=== PATIENT | female | born 1950 | race Caucasian/White ===

== ENCOUNTER → 2017-09-17 07:14 | Outpatient (CLI) | payer OTHER, SELFPAY ==
--- NOTE | 2017-09-17 07:40 | BI_ITS ---
MAMMOGRAPHY - BILATERAL SCREENING REASON FOR EXAM: Female, 67 years old. Routine annual screening examination. PERTINENT HISTORY: Aunt with breast cancer. TECHNIQUE: Digital bilateral breast lia (3D mammographic acquisition) in the CC and MLO projections. 2-D mediolateral oblique (MLO) and craniocaudad (CC) views of both breasts were obtained. CAD: Full Field Digital Mammography with Computer Added Detection was performed. COMPARISON: Comparison is made with prior study dated February 22, 2014 and March 14, 2013. FINDINGS: Breast Composition: There are scattered areas of fibroglandular density. There are no dominant masses or suspicious calcifications. No other significant abnormalities are identified. There has been no significant change since the prior study. BI/SCREENING MAMM (CAD), BILAT IMPRESSION: Stable bilateral screening mammogram. Yearly follow-up mammogram recommended. (A) ASSESSMENT CATEGORY: BIRADS Category 1: Negative. A letter regarding these results will be sent to the patient by the facility within 30 days. Approximately 10% of breast cancers are not detected by mammography. A normal mammogram should not delay biopsy of a clinically suspicious abnormality. [id number] Electronically Signed: Karan Patino MD at 12:45 EDT Tel [phone], Service support ,
== END ==
PROVIDERS: Family Provider Family Medicine; PCP Family Medicine; Visit Provider Family Medicine
DX: Z12.31 Encounter for screening mammogram for malignant neoplasm of breast (principal)
CPT/HCPCS: 77063; 77067

== ENCOUNTER → 2017-10-01 09:56 | Outpatient (CLI) | payer OTHER, SELFPAY ==
[2017-10-01 12:14] LABS: Hemoglobin A1c 6.4 % (4.2-6.3)
[2017-10-01 12:24] LABS: Anion Gap 5 (5-15); BUN 11 mg/dL (7-18); BUN/Creat Ratio 10.7 RATIO (10-20); Calcium,Total 8.9 mg/dL (8.5-10.1); Chloride 101 mmol/L (98-107); Cholesterol 192 mg/dL (200); Creatinine, Serum 1.03 mg/dL (0.55-1.02); EST Glomerular Filtration Rate 57 mL/min (>60); Est Glom Filt Rate - Afr Amer 69 mL/min (>60); Glucose 118 mg/dL (74-106); High Density Lipoprotein 40 mg/dL; Potassium 3.7 mmol/L (3.5-5.1); Sodium Level 138 mmol/L (136-145); Thyroid Stim Hormone (TSH) 2.49 uIU/mL (0.358-3.74); Triglycerides 157 mg/dL; Very Low Density Lipoprotein 31 mg/dL (5-40)
[2017-10-02 08:39] LABS: Vitamin D,25 Hydroxy 37.7 ng/mL (29.95-100.01)
== END ==
PROVIDERS: Family Provider Family Medicine; PCP Family Medicine; Visit Provider Family Medicine
DX: I10 Essential (primary) hypertension (principal); R73.09 Other abnormal glucose; E55.9 Vitamin D deficiency, unspecified; E78.00 Pure hypercholesterolemia, unspecified; E03.9 Hypothyroidism, unspecified
CPT/HCPCS: 36415; 80048; 80061; 82306; 83036; 84443

== ENCOUNTER → 2018-04-09 14:52 | Outpatient (CLI) | payer OTHER, SELFPAY ==
--- NOTE | 2018-04-09 14:55 | RAD_ITS ---
STUDY: X-RAY - RIGHT KNEE REASON FOR EXAM: Female, 67 years old. Bilateral knee pain TECHNIQUE: 3 weight bearing view(s) of the knee. COMPARISON: None. FINDINGS: Normal visualized distal femur. Normal visualized proximal tibia and fibula. Normal proximal tibiofibular articulation. There is moderate degenerative arthrosis of the medial femorotibial compartment with moderate joint space narrowing. Normal lateral femorotibial compartment. There is mild degenerative arthrosis of the patellofemoral articulation. There is a soft tissue prominence in the suprapatellar region suggesting a small volume joint effusion. The soft tissue structures are unremarkable. RAD/Knee 3 Views IMPRESSION: 1. Medial dominant osteoarthrosis. Trace joint effusion. Electronically Signed: Donavan Barrios MD at 8:32 EST , Service support ,
--- NOTE | 2018-04-09 14:55 | RAD_ITS ---
STUDY: X-RAY - LEFT KNEE REASON FOR EXAM: Female, 67 years old. Bilateral knee pain TECHNIQUE: 3 view(s) of the knee. COMPARISON: None. FINDINGS: Normal visualized distal femur. Normal visualized proximal tibia and fibula. Normal proximal tibiofibular articulation. There is mild to moderate degenerative arthrosis of the medial femorotibial compartment. Normal lateral femorotibial compartment. There is mild degenerative arthrosis of the patellofemoral articulation. There is no demonstrated joint effusion. The soft tissue structures are unremarkable. RAD/Knee 3 Views IMPRESSION: 1. Medial dominant osteoarthrosis. Electronically Signed: Donavan Barrios MD at 8:33 EST , Service support ,
== END ==
PROVIDERS: Family Provider Family Medicine; PCP Family Medicine; Referring Provider Family Medicine; Visit Provider Family Medicine
DX: M19.90 Unspecified osteoarthritis, unspecified site (principal)
CPT/HCPCS: 73562

== ENCOUNTER 2018-05-20 17:11 | Emergency (ER) | payer OTHER, SELFPAY ==
[2018-05-20 17:11] VITALS: BP 157/98; PULSE 92; RESP 16; TEMP 37.1; O2SAT 94; BMI 30.4
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
[2018-05-20 18:33] VITALS: BP 145/89; PULSE 88; RESP 14; O2SAT 97
== END 2018-05-20 18:33 | disposition home or self-care (01) ==
PROVIDERS: Emergency Provider Emergency Medicine; Family Provider Family Medicine; PCP Family Medicine
DX: S16.1XXA Strain of muscle, fascia and tendon at neck level, initial encounter (principal); T14.8XXA Other injury of unspecified body region, initial encounter; R07.9 Chest pain, unspecified; M25.511 Pain in right shoulder; M25.512 Pain in left shoulder; M25.561 Pain in right knee; M25.562 Pain in left knee; J02.9 Acute pharyngitis, unspecified; M54.9 Dorsalgia, unspecified; V89.2XXA Person injured in unspecified motor-vehicle accident, traffic, initial encounter; Y93.9 Activity, unspecified; Y92.9 Unspecified place or not applicable; E11.9 Type 2 diabetes mellitus without complications
CPT/HCPCS: 99284

== ENCOUNTER → 2018-09-22 | Outpatient (CLI) | payer OTHER, SELFPAY ==
[2018-09-22 14:24] LABS: Hemoglobin A1c 6.6 % (4.2-6.3)
[2018-09-22 14:26] LABS: Anion Gap 8 (5-15); BUN 14 mg/dL (7-18); BUN/Creat Ratio 14.1 RATIO (10-20); Calcium,Total 9.1 mg/dL (8.5-10.1); Chloride 102 mmol/L (98-107); Cholesterol 204 mg/dL (200); EST Glomerular Filtration Rate 59 mL/min (>60); Est Glom Filt Rate - Afr Amer 71 mL/min (>60); Glucose 114 mg/dL (74-106); High Density Lipoprotein 40 mg/dL; Potassium 3.8 mmol/L (3.5-5.1); Sodium Level 141 mmol/L (136-145); Triglycerides 155 mg/dL; Very Low Density Lipoprotein 31 mg/dL (5-40)
== END | disposition home or self-care (01) ==
LOC: MTLAB 12:14
PROVIDERS: Family Provider Family Medicine; PCP Family Medicine; Referring Provider Family Medicine; Visit Provider Family Medicine
DX: I10 Essential (primary) hypertension (principal); R73.03 Prediabetes; E78.00 Pure hypercholesterolemia, unspecified; E03.9 Hypothyroidism, unspecified; E55.9 Vitamin D deficiency, unspecified
CPT/HCPCS: 36415; 80048; 80061; 82306; 83036; 84443

== ENCOUNTER → 2018-12-22 14:11 | Outpatient (CLI) | payer OTHER, SELFPAY ==
--- NOTE | 2018-12-22 14:13 | BI_ITS ---
MAMMOGRAPHY - BILATERAL SCREENING REASON FOR EXAM: Female, 68 years old. Routine annual screening examination. PERTINENT HISTORY: Aunt with breast cancer. TECHNIQUE: Digital bilateral breast lj (3D mammographic acquisition) in the CC and MLO projections. 2-D mediolateral oblique (MLO) and craniocaudad (CC) views of both breasts were obtained. CAD: Full Field Digital Mammography with Computer Added Detection was performed. COMPARISON: Comparison is made with prior examination dated September 17, 2017 and February 22, 2014. FINDINGS: Breast Composition: There are scattered areas of fibroglandular density. There are no dominant masses or suspicious calcifications. Stable small benign-appearing right axillary lymph nodes. No other significant abnormalities are identified. There has been no significant change since the prior study. BI/SCREEN MAMM (CAD) W/LJ BILAT IMPRESSION: Stable bilateral screening mammogram. Yearly follow-up mammogram recommended. (A) ASSESSMENT CATEGORY: BIRADS Category 2: Benign. A letter regarding these results will be sent to the patient by the facility within 30 days. Approximately 10% of breast cancers are not detected by mammography. A normal mammogram should not delay biopsy of a clinically suspicious abnormality. [id number] Electronically Signed: Karan Patino, at 15:22 EDT , Service support ,
== END ==
PROVIDERS: Family Provider Family Medicine; PCP Family Medicine; Referring Provider Family Medicine; Visit Provider Family Medicine
DX: Z12.31 Encounter for screening mammogram for malignant neoplasm of breast (principal)
CPT/HCPCS: 77063; 77067

== ENCOUNTER → 2019-09-21 11:15 | Outpatient (CLI) | payer OTHER, SELFPAY ==
[2019-09-21 16:05] LABS: Hemoglobin A1c 6.3 % (3.8-5.6)
[2019-09-21 16:27] LABS: ALB/GLOB Ratio 1.2 RATIO (0.9-2.4); AST(SGOT) 26 U/L (15-37); Alanine Aminotransfer ALT/SGPT 46 U/L (13-56); Alkaline Phosphatase 58 U/L (45-117); Anion Gap 7 (5-15); BUN 13 mg/dL (7-18); BUN/Creat Ratio 12.7 RATIO (10-20); Calcium,Total 9.4 mg/dL (8.5-10.1); Chloride 99 mmol/L (98-107); Cholesterol 220 mg/dL (200); Creatinine, Serum 1.02 mg/dL (0.55-1.02); EST Glomerular Filtration Rate 57 mL/min (>60); Est Glom Filt Rate - Afr Amer 69 mL/min (>60); Globulin 3.4 g/dL (2.2-4.2); Glucose 104 mg/dL (74-106); High Density Lipoprotein 39 mg/dL; Potassium 3.6 mmol/L (3.5-5.1); Protein, Total 7.4 g/dL (6.4-8.2); Sodium Level 138 mmol/L (136-145); Thyroid Stim Hormone (TSH) 2.48 uIU/mL (0.358-3.74); Triglycerides 165 mg/dL; Very Low Density Lipoprotein 33 mg/dL (5-40)
== END ==
PROVIDERS: PCP Family Medicine; Referring Provider Family Medicine; Visit Provider Family Medicine
DX: E03.9 Hypothyroidism, unspecified (principal); I10 Essential (primary) hypertension; R73.03 Prediabetes
CPT/HCPCS: 36415; 80053; 80061; 83036; 84443

== ENCOUNTER 2019-10-28 10:59 | Outpatient (RCR) | payer OTHER, SELFPAY ==
--- NOTE | 2019-10-28 11:00 | SOAP_ITS ---
REASON FOR REFERRAL: The Patient is a 69-year-old female referred for a clinical assessment of the swallow function at [facility] on 10/28/2019 due to persisting pre-prandial coughing during intake. The Patient reports occasional coughing prior to deglutition with solids and mixed textures occurring < 1x per month over several years, with no significant variations in occurrence, though reports episodes do concern her due to the intensity of some of the episodes. She reports that this occurs typically in social situations, though can occur while by herself. She reports feeling at times like she is coughing on her saliva while chewing, and may be consuming larger volumes during these incidences, though is not quite positive about bolus volume associations, and is unable to identify any particular items she is struggling with. She reports mild xerostomia (dry mouth) that is self-managed through frequent liquid intake. She reports an occasional and mild post prandial sensation of a ?lump? in her throat (globus sensation) in addition to post intake substernal discomfort. She denies any unintentional weight loss, and denies any issues with appetite, early satiety (feeling full after few bites), or nausea and emesis. She denies issues with dysgeusia / hypogeusia / ageusia / hyposmia, denies issues with diurnal sialorrhea (drooling during the daytime), and denies odynophagia (pain during swallow). She denies any current or previous issues with aspiration related pulmonary complications, to include pneumonia, bronchitis, or unexplained asthma symptoms. The Patient is fully ambulatory with no difficulties with posture maintenance, appears well nourished. 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 PREVIOUS MODIFIED BARIUM SWALLOW STUDY: None ADDITIONAL OBJECTIVE ASSESSMENT RESULTS: 03/02/2017 esophagram revealed no mucosal erosions or esophageal strictures; tertiary contractions; small sliding type hiatal hernia. RESULTS OF THE EVALUATION: The Patient presents with no clear findings suggesting oropharyngeal dysphagia, though given reported symptomology would benefit from further objective assessment through videofluoroscopy. FUNCTIONAL STATUS ASSESSMENT RESULTS: FAY INDEX OF INDEPENDENCE IN ACTIVITIES OF DAILY LIVING: BATHIN DRESSIN TOILETIN TRANSFERRIN CONTINENCE: 1 FEEDIN FAY TOTAL SCORE: 6/6 COURTNEY-XU INSTRUMENTAL ACTIVITIES OF DAILY LIVING SCALE (IADL): ABILITY TO USE THE TELEPHONE: 1 SHOPPIN FOOD PREPARATION: 1 HOUSEKEEPIN LAUNDRY: 1 MODE OF TRANSPORTATION: 1 RESPONSIBILITY FOR OWN MEDICATION: 1 ABILITY TO HANDLE FINANCES: 1 COURTNEY-XU TOTAL SCORE: 8/8 FUNCTIONAL AMBULATION CATEGORY (FAC): FAC SCORE: 5 (ambulator- independent) FAC DESCRIPTION: subject can ambulate independently on nonlevel and level surfaces, stairs, and inclines. SUPPLEMENTARY DYSPHAGIA ASSESSMENT RESULTS (SCALES / PROM): REFLUX SYMPTOM INDEX (RSI) RSI TOTAL SCORE: 18 RSI INDICATIONS: a score of >13 may indicate significant reflux EATING ASSESSMENT TOOL ? 10 (EAT-10): EAT-10 TOTAL SCORE: 3 EAT-10 INTERPRETATION: a score of 3+ may represent swallowing problems ORAL MOTOR / MODIFIED CRANIAL NERVE ASSESSMENT: TRIGEMINAL NERVE (CNV): appears grossly intact FACIAL NERVE (CNVII): appears grossly intact GLOSSOPHARYNGEAL NERVE (CNIX): appears grossly intact VAGUS NERVE (CNX): appears grossly intact HYPOGLOSSAL NERVE (CNXII): appears grossly intact ORAL HEALTH ASSESSMENT TOOL (OHAT): LIPS: CATEGORY: 0 (healthy) DESCRIPTION: smooth, pink, moist TONGUE: CATEGORY: 0 (healthy) DESCRIPTION: normal, moist, roughness, pink GUMS AND TISSUES: CATEGORY: 0 (healthy) DESCRIPTION: pink, moist, smooth, no bleeding SALIVA: CATEGORY: 0 (healthy) DESCRIPTION: moist tissues, watery and free-flowing saliva NATURAL TEETH: PRESENT: yes CATEGORY: 0 (healthy) DESCRIPTION: no decayed or broken teeth/roots ORAL CLEANLINESS: CATEGORY: 0 (healthy) DESCRIPTION: clean with no food particles / tartar / buildup in mouth or dentures DENTAL PAIN: CATEGORY: 0 (healthy) DESCRIPTION: no behavioral, verbal, or physical signs of dental pain OHAT TOTAL SCORE: 0/16 SIALORRHEA SCORING SCALE (SSS): SSS SCORE: 1 (of 9) SSS DESCRIPTION: dry, never drools CLINICAL ASSESSMENT OF SWALLOW FUNCTION (QUANTITATIVE): REPETITIVE SALIVA SWALLOWING TEST (RSST): RSST RESULT: pass RSST DESCRIPTION: able to elicit 2 dry swallows within 30 seconds. 1OZ WATER SWALLOWING TEST (1OZ WST): 1OZ WST RESULTS: normal ? 1 (of 5) 1OZ WST DESCRIPTION: single swallow without coughing during ingestion 3OZ WATER SWALLOWING TEST (3OZ WST): 3OZ WST RESULTS: normal DRINKING EPISODES: none GALLARDO ASSESSMENT OF SWALLOWING ABILITY (MASA): MASA ASPIRATION SEVERITY SCORE: 198 MASA SEVERITY SCORE DESCRIPTION: unremarkable MASA DYSPHAGIA RISK RATING: possible; lowered probability of disorder, requiring ongoing review and monitoring CLINICAL ASSESSMENT OF SWALLOW FUNCTION (QUALITATIVE): ORAL PREPARATORY PHASE: competent bolus manipulation without fragmented swallowing (piecemeal deglutition); sufficient anterior oral containment during manipulation; preserved management of breathing / bolus formation without disrupted E ? S ? E pattern ORAL TRANSITIONAL PHASE: oral transitional phase appears unremarkable; no signs of transitional incompetence; no signs of bolus consolidation impairments; no signs or symptoms of premature posterior bolus loss PHARYNGEAL PHASE: appropriate hyolaryngeal excursion upon digital palpation; no obvious findings suggestive of pharyngeal phase delay / dyssynchrony; no subjective signs of pharyngeal dysmotility; no subjective signs of velopharyngeal impairments; intermittent post prandial throat clearing (~2-3 minutes post intake, continued for several minutes) ESOPHAGEAL PHASE: esophageal phase appears unremarkable, though noted higher RSI score reported (18) CLINICAL ASSESSMENT OF SWALLOW FUNCTION (SEVERITY GRADING): SWALLOWING PERFORMANCE SCALE (SPS): SPS SCORE: 2 (within functional limits) SPS SCORE DESCRIPTION: abnormal oral or pharyngeal stage; able to eat regular diet without modifications or swallowing precautions INTERVENTION CONSIDERATIONS AND RECOMMENDATIONS: The Patient would benefit from further assessment of the oropharyngeal swallow function under fluoroscopy due to the subjective nature of the current assessment regarding pharyngeal phase impairments and posterior bolus loss during the oral transitional phase of swallowing; given her reported symptoms she may be demonstrating intermittent bolus loss and / or mild pharyngeal phase dyssynchrony. . RECOMMENDATIONS FOR INTERVENTION: The Patient requires intensive skilled speech-language intervention targeting diet texture management and training / implementation of recommended compensatory strategies; with recommendations for further diagnostic assessment of the swallow function under fluoroscopy via Modified Barium Swallow (MBS) study; with goal adjustment pending MBS completion. POST ASSESSMENT EDUCATION: The results and recommendations were discussed with the Patient immediately following completion of the assessment, with the Patient verbalizing understanding and agreement with all recommendations and education provided. DIET TEXTURE RECOMMENDATIONS: Will recommend a regular textured (IDDSI: 7), thin liquid diet (IDDSI: 0) diet RECOMMENDED COMPENSATORY STRATEGIES: Reduced bolus volume / rate of ingestion, seated upright at 90 degrees during PO intake, remain upright for 30-60 minutes post meal (GERD precaution) FUNCTIONAL OUTCOMES: OUTCOME 1: the Patient will tolerate the least restrictive means of nutrition to facilitate adequate hydration / nutrition with optimum safety and efficiency of swallowing function during P.O. intake without overt signs and symptoms of aspiration. OUTCOME 2: the Patient will participate in a Modified Barium Swallow (MBS) study to objectively assess the Patient?s oropharyngeal swallowing function, to determine the least restrictive means of nutrition, and to identify appropriate intervention approaches / strategies to implement during treatment sessions at the supervised level. OUTCOME 3: goal adjustment as needed post MBS Micah Peterson M.A., CCC-EAP COUNSELOR, CBIS MBSImP Certified, LSVT Certified [facility] Speech-Language Pathology Department Email: [email or web address]
--- NOTE | 2020-03-16 12:54 | HP.SP.DC_ITS ---
ST Discharge Summary - Discharged: Discharge: The patient is a 69-year-old female who was referred for a clinical assessment of the swallow function at [facility] on 10/28/2019 due to persisting pre-prandial coughing during intake. The results of the assessment revealed no clear findings suggesting oropharyngeal dysphagia, though given reported symptomology would benefit from further objective assessment through videofluoroscopy. No videofluoroscopic assessment has yet to be completed, with no further intervention sessions scheduled. Given the rather significant laps between intervention sessions, it is appropriate to discharge from the skilled speech-language pathology caseload at this time, though I would gladly re-initiate intervention as needed moving forward.
== END 2019-10-28 19:00 | disposition home or self-care (01) ==
LOC: SP 10:59
PROVIDERS: PCP Family Medicine; Referring Provider Family Medicine; Visit Provider Family Medicine
DX: T17.908A Unspecified foreign body in respiratory tract, part unspecified causing other injury, initial encounter (principal)
CPT/HCPCS: 92610

== ENCOUNTER → 2020-02-21 15:55 | Outpatient (CLI) | payer OTHER, SELFPAY ==
--- NOTE | 2020-02-21 15:56 | BI_ITS ---
MAMMOGRAPHY - BILATERAL SCREENING REASON FOR EXAM: Female, 69 years old. Routine annual screening examination. PERTINENT HISTORY: Aunt with breast cancer. TECHNIQUE: Digital bilateral breast lj (3D mammographic acquisition) in the CC and MLO projections. 2-D mediolateral oblique (MLO) and craniocaudad (CC) views of both breasts were obtained. CAD: Full Field Digital Mammography with Computer Added Detection was performed. COMPARISON: Comparison is made with prior study dated 12/22/2018 and 09/17/2017. FINDINGS: Breast Composition: There are scattered areas of fibroglandular density. There are no dominant masses or suspicious calcifications. Stable small benign-appearing bilateral axillary lymph nodes. No other significant abnormalities are identified. There has been no significant change since the prior study. BI/SCREEN MAMM (CAD) W/LJ BILAT IMPRESSION: Stable bilateral screening mammogram. Yearly follow-up mammogram recommended. (A) ASSESSMENT CATEGORY: BIRADS Category 2: Benign. A letter regarding these results will be sent to the patient by the facility within 30 days. Approximately 10% of breast cancers are not detected by mammography. A normal mammogram should not delay biopsy of a clinically suspicious abnormality. [id number] Electronically Signed: Karan Patino, at 8:21 EST , Service support ,
== END ==
PROVIDERS: PCP Family Medicine; Referring Provider Family Medicine; Visit Provider Family Medicine
DX: Z12.31 Encounter for screening mammogram for malignant neoplasm of breast (principal); Z80.3 Family history of malignant neoplasm of breast
CPT/HCPCS: 77063; 77067

== ENCOUNTER → 2020-06-13 15:34 | Outpatient (CLI) | payer OTHER, SELFPAY ==
--- NOTE | 2020-06-13 15:45 | RAD_ITS ---
STUDY: X-RAY - RIGHT WRIST REASON FOR EXAM: Female, 69 years old. Wrist pain. TECHNIQUE: 3 view(s) of the wrist were obtained. COMPARISON: None. FINDINGS: Generalized osteopenia. Normal visualized distal radius and ulna. There is degenerative arthrosis of the radiocarpal articulation. Normal distal radioulnar articulation. Normal carpal bones. There is widening of the scapholunate articulation suggesting a sprain of the scapholunate interosseous ligament. Normal carpometacarpal articulation of the thumb. Normal second through fifth carpometacarpal articulations. Normal visualized metacarpal bones. The soft tissue structures are unremarkable. RAD/Wrist min 3 Views IMPRESSION: Osteopenia and degenerative changes of the wrist. There is no acute fracture or dislocation. Electronically Signed: Jimmy Torres DO at 21:23 EST Tel [phone], Service support ,
== END ==
PROVIDERS: PCP Family Medicine; Referring Provider Family Medicine; Visit Provider Family Medicine
DX: M25.531 Pain in right wrist (principal)
CPT/HCPCS: 73110

== ENCOUNTER 2020-08-09 07:30 | Outpatient (RCR) | payer OTHER, SELFPAY ==
--- NOTE | 2020-06-28 15:01 | HP.OTEVAL_ITS ---
Patient's Visit Information KIMBERLEE SUAREZ is a 69 year old F, referred to Occupational Therapy by Dr. Racheal Matthews MD, with a diagnosis of right wrist pain. Date of Evaluation: 06/28/20 Occupational Therapist: Pamela Hernandez, LEIDYR/Izzy, CHT - Subjective This 69 year old female was seen for OT eval with dx of right wrist pain. Pt s tates she has had wrist pian for 4 weeks or so- pt states right forearm is feeling tingling/buring and painful to touch. pt states this is limiting her with ADls and work tasks. 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 25 UD 35 - Strength Hardwood Floor Refinisher: right 30# left 50# Lateral Pinch: right 12# left 16# Tripod Pinch: right 12# left 14# - Sensation Sensation Comments: denies to finger tips - Special Tests WHAT Test: negative - Quick DASH-Disab of Arm,Shoulder& Hand Quick DASH Score: 36.3625 - Goals Goal:: pt will demo a increase in right lane attendant strength by 15# or greater to increase pts ind. with ADLs and IADLs by d/c Goal:: pt will demo right wrist ROM equal to Left by d/c to increase pts ind. with ADls and IADLs Goal:: pt will report pain no greater than 1/10 with use of right UE with ALDs and IADLs by d/c Goal:: pt will demo ind donning/doffing of custom orthosis by end of 1st session. pt will demo understanding of orthosis use and understanding precautions by end of 1st session. - Rehabilitation General Assessment: pts pain is limiting pts ind.with ADLs and work tasks at this time. pain is with ROM and reaching for items. Pt would benefit from OT services 1-2x week for 6 weeks. pt would bendfit from orthosis to provide support and healing to soft tissue structures at this time. Today therapist ed. pt on wrist ergonomics with reach/grasp and macros. custom thumb spica orthosis. therapist ed. pt on use of orthosis and precautions. pt agree to return to clinic for adj. therapist aslo ed. pt on use of heat/ice prn. and radial nerve glide- pt demo understanding and agree to POC. Rehabilitation Potential: Good - Anticipated Interventions Strengthening, Triggerpoint Release, Desensitization, Modalities, Orthoses, Joint Protection/Energy Conservation, Ergonomic Education - Visit Plan Frequency: 1-2x /Week Duration: 6 Weeks TEXT: Thank you for the opportunity to evaluate your patient. For Medicare and Medicare HMO plans, please review the plan of care and approve it. It will need to be FAXED BACK to us at [phone] for Medicare purposes. Please let me know if there are questions or concerns regarding this plan of care. Physician Signature: Date:
--- NOTE | 2020-08-09 08:03 | HP.OTDCSUM_ITS ---
It has been my pleasure to treat KIMBERLEE SUAREZ under orders from Dr. Racheal Matthews MD, for the diagnosis of right wrist pain for a total of 12 visit(s). Please see the following information for a summary of their discharge status. % Improvement: 40 Objective/Function: pt demo a right tongue and groove machine setter strength of 37# this is increase from 30#. right lateral pinch of 14# a increase from 12#. right tripod pinch at 13# a increase from 12#. pt demo functional ROM with some pain radial deviation. pt continues to demo with + fink testing Patient Goals: Decrease Pain, Use Hand/Wrist/Arm Normally Again Goal:: pt will demo a increase in right tongue and groove machine setter strength by 15# or greater to increase pts ind. with ADLs and IADLs by d/c Goal:: pt will demo right wrist ROM equal to Left by d/c to increase pts ind. with ADls and IADLs Goal:: pt will report pain no greater than 1/10 with use of right UE with ALDs and IADLs by d/c Goal:: pt will demo ind donning/doffing of custom orthosis by end of 1st session. pt will demo understanding of orthosis use and understanding precautions by end of 1st session. Plan: cont POC Discharge Comments: pt was seen for 13 OT visits. pt continues to have difficulty with right wrist pain- pt has not been wearing her brace the last two weeks- pt continues to report pain with active use, pt demo +fink. test- therapists has advised to return to for more aggressive tx. If there are questions or concerns regarding this patient's occupational therapy, please fell free to call me at [phone]. Thank you for the referral of this patient. Sincerely, Pamela Hernandez, OTR/L, CHT
== END 2020-08-09 19:00 | disposition home or self-care (01) ==
LOC: OT 07:30
PROVIDERS: PCP Family Medicine; Referring Provider Family Medicine; Visit Provider Family Medicine
DX: M25.531 Pain in right wrist (principal)
CPT/HCPCS: 97035; 97110; 97140; 97166; 97530; 97760

== ENCOUNTER → 2020-10-09 09:00 | Outpatient (CLI) | payer OTHER, SELFPAY ==
[2020-10-09 10:38] LABS: ALB/GLOB Ratio 1.2 RATIO (0.9-2.4); AST(SGOT) 21 U/L (15-37); Alanine Aminotransfer ALT/SGPT 35 U/L (13-56); Albumin, Serum 3.6 g/dL (3.2-5.0); Alkaline Phosphatase 61 U/L (45-117); Anion Gap 8 (5-15); BUN 15 mg/dL (7-18); BUN/Creat Ratio 15.4 RATIO (10-20); Calcium,Total 8.7 mg/dL (8.5-10.1); Chloride 102 mmol/L (98-107); Cholesterol 213 mg/dL (200); Creatinine, Serum 0.97 mg/dL (0.55-1.02); EST Glomerular Filtration Rate 60 mL/min (>60); Est Glom Filt Rate - Afr Amer 73 mL/min (>60); Glucose 132 mg/dL (74-106); High Density Lipoprotein 41 mg/dL; Potassium 3.8 mmol/L (3.5-5.1); Protein, Total 6.6 g/dL (6.4-8.2); Sodium Level 140 mmol/L (136-145); Thyroid Stim Hormone (TSH) 2.44 uIU/mL (0.358-3.74); Triglycerides 153 mg/dL; Very Low Density Lipoprotein 31 mg/dL (5-40)
[2020-10-09 10:54] LABS: Hemoglobin A1c 6.3 % (3.8-5.6)
== END ==
PROVIDERS: PCP Family Medicine; Referring Provider Family Medicine; Visit Provider Family Medicine
DX: E03.9 Hypothyroidism, unspecified (principal); E78.00 Pure hypercholesterolemia, unspecified; R73.03 Prediabetes; I10 Essential (primary) hypertension
CPT/HCPCS: 36415; 80053; 80061; 83036; 84443

== ENCOUNTER 2020-11-06 07:30 | Outpatient (RCR) | payer OTHER, SELFPAY ==
--- NOTE | 2020-11-06 09:21 | HP.OTDCSUM_ITS ---
It has been my pleasure to treat KIMBERLEE SUAREZ under orders from Dr. Enoch West MD, for the diagnosis of right radial styloid tenosynovitis (DeQuervain's) for a total of 4 visit(s). Please see the following information for a summary of their discharge status. 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 left salesperson burial needs strength 50#. right lateral pinch 10# a increase from 8#. right wrist ROM 60/60. right CMC 10*. MP 40*. IP 85. pt demo full ROM without pain of right wrist and thumb -. 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 Therapist has ed. pt on work station ergo and possible use of ergo mouse- pt demo understanding and agree to D/c with HEP Patient Goals: Regain Mobility, Regain Strength, Decrease Pain, Improve Fine Motor Skills, Use Hand/Wrist/Arm Normally Again Goal:: pt will demo a increase in right salesperson burial needs strength by 15# to increase pts ind. with ADLs and IADLs by dc. pt will demo a increase in tripod/lateral pinch by 2# or greater to ind. open baggies/containers by d/c Goal:: pt will report no pain great than 1/10 with use of right hand with ADls and IADLs by d/c Goal:: pt will demo understanding of wrist position to prevent grasping with wrist in flex and limiting RD/UD with computer use by d/c Goal:: pt will demo understanding of using orthosis at all times to allow for healing. pt will demo understanding of skin care and precautions to limit skin irritation Plan: D/C Discharge Comments: pt had cortisone shot about 6 weeks ago and has no pain in her right wrist- therapist ed. pt in work ergo and computer station ergo to avoid repetitive wrist RD/UD and pinch with wrist flex/ext.pt to cont. to wean out of orthosis but states she will cont. with use at work for a few weeks to ensure no irritations. pt demo understanding and agree to D/C with HEP. If there are questions or concerns regarding this patient's occupational therapy, please fell free to call me at [phone]. Thank you for the referral of this patient. Sincerely, Pamela Hernandez OTR/Izzy, CHT
--- NOTE | 2020-11-06 09:21 | HP.OTEVAL ---
Patient's Visit Information KIMBERLEE SUAREZ is a 70 year old F, referred to Occupational Therapy by Dr. Enoch West MD, with a diagnosis of right radial styloid tenosynovitis (DeQuervain's). Date of Evaluation: 10/02/20 Occupational Therapist: Pamela Hernandez, CHERYL/Izzy, CHT - Subjective This 70 year old female was seen for OT eval with dx of right radial styloid tenosynovitis ( DeQuervain's). pt has struggled with symptoms of pain for about 6 months. Pt did have cortisone shot about two weeks ago and started to wear her thumb Spica orthosis. pt states since she has had the cortisone shot she feels 50% better. Pt reports she is using her orthosis at all times. 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 with ADLs and IADLs by dc. pt will demo a increase in tripod/lateral pinch by 2# or greater to ind. open baggies/containers by d/c Goal:: pt will report no pain great than 1/10 with use of right hand with ADls and IADLs by d/c Goal:: pt will demo understanding of wrist position to prevent grasping with wrist in flex and limiting RD/UD with computer use by d/c Goal:: pt will demo understanding of using orthosis at all times to allow for healing. pt will demo understanding of skin care and precautions to limit skin irritation - Rehabilitation General Assessment: pt continuing to struggle with limited ROM and pain. this has limited pt would benefit from skilled OT services 1-2x week for 6 weeks to return pt to PLOF. Today therapist ed. pt on need of continue use of orthosis. wrist ergo. to prevent stress on tendon- pt given handout and demo understanding and agree to POC. Rehabilitation Potential: Good - Anticipated Interventions A/AAROM/PROM, Strengthening, Orthoses, Joint Protection/Energy Conservation, Ergonomic Education, Education re assistive Equipment, Education re Diagnosis, Home Program - Visit Plan Frequency: 1-2x /Week Duration: 6 Weeks TEXT: Thank you for the opportunity to evaluate your patient. For Medicare and Medicare HMO plans, please review the plan of care and approve it. It will need to be FAXED BACK to us at [phone] for Medicare purposes. Please let me know if there are questions or concerns regarding this plan of care. Physician Signature: Date:
== END 2020-11-06 11:38 | disposition home or self-care (01) ==
LOC: OT 07:30
PROVIDERS: PCP Family Medicine; Referring Provider Orthopaedic Surgery; Visit Provider Orthopaedic Surgery
DX: M65.4 Radial styloid tenosynovitis [de Quervain] (principal)
CPT/HCPCS: 97110; 97166; 97530

== ENCOUNTER → 2021-04-02 17:00 | Outpatient (CLI) | payer OTHER, SELFPAY ==
--- NOTE | 2021-04-02 16:41 | BI_ITS ---
MAMMOGRAPHY - BILATERAL SCREENING 3-D TOMOSYNTHESIS REASON FOR EXAM: Female, 70 years old. SCREENING PERTINENT HISTORY: No significant family history. TECHNIQUE: 2-D mammograms and 3-D Tomosynthesis of the breast (s) were performed. CAD was performed. COMPARISON: 02/21/2020 FINDINGS: The breast composition is composed of scattered fibroglandular density. Scattered benign calcifications are seen. No dense spiculated masses or suspicious microcalcifications are identified. No architectural distortion is identified. There is no skin thickening or retraction. There has been no significant change since the prior study. BI/SCRN MAMM (CAD)W/LJ BILAT IMPRESSION: No mammographic signs of malignancy. Routine yearly mammograms recommended. ASSESSMENT CATEGORY: BIRADS Category 1: Negative. A letter regarding these results will be sent to the patient by the facility within 30 days. FOLLOW UP RECOMMENDATION: Yearly follow up mammogram recommended. (A) Approximately 10% of breast cancers are not detected by mammography. A normal mammogram should not delay biopsy of a clinically suspicious abnormality. Electronically Signed: Adolfo Lockett MD at 17:36 EST Tel , Service support ,
== END ==
PROVIDERS: PCP Family Medicine; Visit Provider Family Medicine
DX: Z12.31 Encounter for screening mammogram for malignant neoplasm of breast (principal)
CPT/HCPCS: 77063; 77067

== ENCOUNTER → 2021-10-10 | Outpatient (CLI) | payer OTHER, SELFPAY ==
[2021-10-10 10:35] LABS: Vitamin B12 304 pg/mL (211-911); Vitamin D,25 Hydroxy 52.2 ng/mL
[2021-10-10 10:40] LABS: Hemoglobin A1c 6.5 % (3.8-5.6)
[2021-10-10 10:58] LABS: ALB/GLOB Ratio 1.1 RATIO (0.9-2.4); AST(SGOT) 22 U/L (15-37); Alanine Aminotransfer ALT/SGPT 32 U/L (13-56); Albumin, Serum 3.6 g/dL (3.2-5.0); Alkaline Phosphatase 55 U/L (45-117); Anion Gap 7 (5-15); BUN 14 mg/dL (7-18); BUN/Creat Ratio 13.6 RATIO (10-20); Calcium,Total 9.3 mg/dL (8.5-10.1); Chloride 101 mmol/L (98-107); Cholesterol 207 mg/dL (200); Creatinine, Serum 1.03 mg/dL (0.55-1.02); EST Glomerular Filtration Rate 56 mL/min (>60); Est Glom Filt Rate - Afr Amer 68 mL/min (>60); Globulin 3.3 g/dL (2.2-4.2); Glucose 141 mg/dL (74-106); High Density Lipoprotein 37 mg/dL; Potassium 3.3 mmol/L (3.5-5.1); Protein, Total 6.9 g/dL (6.4-8.2); Sodium Level 139 mmol/L (136-145); Thyroid Stim Hormone (TSH) 2.89 uIU/mL (0.358-3.74); Triglycerides 149 mg/dL; Very Low Density Lipoprotein 30 mg/dL (5-40)
[2021-10-10 11:17] LABS: Microalbumin,Random Urine 6.4 mg/L (NO RANGE EST.)
== END | disposition home or self-care (01) ==
LOC: MTLAB 08:57
PROVIDERS: PCP Family Medicine; Referring Provider Family Medicine; Visit Provider Family Medicine
DX: E03.9 Hypothyroidism, unspecified (principal); E55.9 Vitamin D deficiency, unspecified; E78.5 Hyperlipidemia, unspecified; I10 Essential (primary) hypertension; K21.9 Gastro-esophageal reflux disease without esophagitis; R73.03 Prediabetes
CPT/HCPCS: 36415; 80053; 80061; 82043; 82306; 82607; 83036; 84443

== ENCOUNTER → 2022-03-19 | Outpatient (CLI) | payer OTHER, SELFPAY ==
[2022-03-19 12:31] LABS: Vitamin B12 1605 pg/mL (211-911)
[2022-03-19 12:37] LABS: ALB/GLOB Ratio 1.2 RATIO (0.9-2.4); AST(SGOT) 21 U/L (15-37); Alanine Aminotransfer ALT/SGPT 33 U/L (13-56); Albumin, Serum 3.7 g/dL (3.2-5.0); Alkaline Phosphatase 60 U/L (45-117); Anion Gap 2 (5-15); BUN 13 mg/dL (7-18); Calcium,Total 9.3 mg/dL (8.5-10.1); Chloride 103 mmol/L (98-107); EST Glomerular Filtration Rate 58 mL/min (>60); Est Glom Filt Rate - Afr Amer 70 mL/min (>60); Globulin 3.2 g/dL (2.2-4.2); Glucose 130 mg/dL (74-106); Protein, Total 6.9 g/dL (6.4-8.2); Sodium Level 139 mmol/L (136-145)
[2022-03-19 13:47] LABS: Hemoglobin A1c 6.6 % (3.8-5.6)
== END | disposition home or self-care (01) ==
LOC: MTLAB 09:27
PROVIDERS: PCP Family Medicine; Referring Provider Family Medicine; Visit Provider Family Medicine
DX: I10 Essential (primary) hypertension (principal); R73.03 Prediabetes; E53.8 Deficiency of other specified B group vitamins
CPT/HCPCS: 36415; 80053; 82607; 83036

== ENCOUNTER → 2023-02-24 | Outpatient (CLI) | payer MEDICARE, SELFPAY ==
[2023-02-24 10:52] LABS: Microalbumin,Random Urine 9.8 mg/L (NO RANGE EST.); Vitamin B12 1870 pg/mL (211-911); Vitamin D,25 Hydroxy 60.3 ng/mL
[2023-02-24 11:07] LABS: ALB/GLOB Ratio 1.1 RATIO (0.9-2.4); AST(SGOT) 22 U/L (15-37); Alanine Aminotransfer ALT/SGPT 35 U/L (13-56); Albumin, Serum 3.8 g/dL (3.2-5.0); Alkaline Phosphatase 66 U/L (45-117); Anion Gap 6 (5-15); BUN 12 mg/dL (7-18); BUN/Creat Ratio 11.5 RATIO (10-20); Chloride 100 mmol/L (98-107); Cholesterol 195 mg/dL (200); Creatinine, Serum 1.04 mg/dL (0.55-1.02); EST Glomerular Filtration Rate 55 mL/min (>60); Est Glom Filt Rate - Afr Amer 67 mL/min (>60); Globulin 3.6 g/dL (2.2-4.2); Glucose 135 mg/dL (74-106); High Density Lipoprotein 39 mg/dL; Potassium 3.2 mmol/L (3.5-5.1); Protein, Total 7.4 g/dL (6.4-8.2); Sodium Level 138 mmol/L (136-145); T4 Free Direct 1.25 ng/dL (0.76-1.46); Thyroid Stim Hormone (TSH) 3.08 uIU/mL (0.358-3.74); Triglycerides 165 mg/dL; Very Low Density Lipoprotein 33 mg/dL (5-40)
== END | disposition home or self-care (01) ==
LOC: MTLAB 09:02
PROVIDERS: PCP Family Medicine; Referring Provider Family Medicine; Visit Provider Family Medicine
DX: E03.9 Hypothyroidism, unspecified (principal); E11.69 Type 2 diabetes mellitus with other specified complication; E55.9 Vitamin D deficiency, unspecified; E53.8 Deficiency of other specified B group vitamins; E78.5 Hyperlipidemia, unspecified
CPT/HCPCS: 36415; 80053; 80061; 82043; 82306; 82607; 84439; 84443

== ENCOUNTER → 2023-04-24 | Outpatient (CLI) | payer MEDICARE, SELFPAY ==
--- OUTSIDE RECORDS SUMMARY | 2023-04-24 14:39 | XMS RPT_ITS | CCD ---
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 Name Role Phone Smitha Miller PA-C Unavailable Brett GILES, Enoch Chan Unavailable Allergies Allergy Classification Reported Allergen(s) Allergy Type Date of Onset Reaction(s) Facility (2 sources) Codeine Drug Allergy 9 [facility] Work Phone: (2 sources) PERFUME; Translations: [PERFUME] allergy to substance 9 [facility] Work Phone: Medications Completed/Discontinued Medications Medication Drug Class(es) Dates Sig (Normalized) Sig (Original) [id number] 200 actuat albuterol 0.09 mg/actuat metered dose inhaler (2 sources) beta2-Adrener gic Agonist Start: 5 PROAIR HFA 108 (90 Base) MCG/ACT AERS 1 puff using inhaler as directed albuterol sulfate [id number] Carmenza Hernandez LPN biotin 5 mg oral capsule (2 sources) Start: 1 take 1 capsule by mouth once daily SM BIOTIN 5000 MCG CAPS 1 capsule by mouth once a day biotin [id number] Carmenza Hernandez LPN Calcium (2 sources) Phosphate Binder, Calcium Start: 5 take 1 tablet by mouth once daily CALCIUM 600 + D TABLET 1 tablet by mouth once a day CALCIUM 600 + D TABLET Carmenza Hernandez LPN Cholecalciferol (2 sources) Vitamin D Start: 9 take 1 capsule by mouth once daily SM VITAMIN D3 50 MCG (2000 UT) CAPS 1 capsule by mouth once a day cholecalciferol (vitamin d3) [id number] Carmenza Mary TRIVEDI citalopram 20 mg oral tablet (2 sources) Serotonin Reuptake Inhibitor Start: 3 take 1 tablet by mouth once daily CITALOPRAM HYDROBROMIDE 20 MG TABS 1 tablet by mouth once a day citalopram [id number] Carmenza Hernandez LPN hydroCHLOROthiazide 25 mg oral tablet (2 sources) Thiazide Diuretic Start: 3 take 1 tablet by mouth once daily HYDROCHLOROTHIAZIDE 25 MG TABS 1 tablet by mouth once a day hydrochlorothiazide [id number] Camrenza Mary TRIVEDI levothyroxine sodium 0.05 mg oral tablet (2 sources) l-Thyroxine Start: 5 take 1 tablet by mouth once daily LEVOTHYROXINE SODIUM 50 MCG TABS 1 tablet by mouth once a day levothyroxine 10907855855 Carmenza eHrnandez LPN omeprazole 40 mg delayed release oral capsule (2 sources) Proton Pump Inhibitor Start: 9 take 1 capsule by mouth once daily OMEPRAZOLE 40 MG CPDR 1 capsule by mouth once a day omeprazole 06818585892 Carmenza Hernandez LPN Problems Active Problems Problem Classification Problem Date Documented Da te Episodic/Chronic Neoplasms of unspecified nature or uncertain behavior (2 sources) 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; Translations: [Neoplasm of uncertain behavior of connective and other soft tissue] Onset: 04-30-2021 04-30-2021 Episodic Other nervous system disorders (2 sources) Carpal tunnel syndrome, right upper limb; Translations: [Carpal tunnel syndrome] Onset: 02-04-2019 02-04-2019 Chronic Past or Other Problems Problem Classification Problem Date Documented Date Episodic/Chronic Other connective tissue disease (2 sources) Radial styloid tenosynovitis [de Quervain]; Translations: [Radial styloid tenosynovitis] Onset: 09-18-2020 09-18-2020 Episodic Other connective tissue disease (2 sources) Trigger finger, right ring finger; Translations: [Trigger finger (acquired)] Onset: 02-04-2019 02-04-2019 Episodic Other connective tissue disease (2 sources) Other synovitis and tenosynovitis, right forearm; Translations: [Other tenosynovitis of hand and wrist] Onset: 02-04-2019 02-04-2019 Episodic Unclassified (2 sources) Problem Results Test Name Value Interpretation Reference Range Facil ity Vital Signs Date Time Vital Sign Value Performing Clinician Facility NEGATED: Highlighted [id number] 09:36-0400 Body height 172.72 cm Cammy Calle RN [facility] Work Phone: NEGATED: Highlighted [id number] 09:36-0400 Body height 173 cm Cammy Calle RN [facility] Work Phone: NEGATED: Highlighted [id number] 09:36-0400 Body mass index (BMI) [Ratio] 31.59 kg/m2 Cammy Calle RN [facility] Work Phone: NEGATED: Highlighted [id number] 09:36-0400 Body weight 93.9 kg Cammy Calle RN [facility] Work Phone: NEGATED: Highlighted [id number] 09:36-0400 Body weight 94 kg Cammy Calle RN [facility] Work Phone: NEGATED: Highlighted [id number] 09:35-0500 Body height 172.72 cm Jaye Ziats AT [facility] Work Phone: NEGATED: Highlighted [id number] 09:35-0500 Body height 173 cm Jaye Ziats AT [facility] Work Phone: NEGATED: Highlighted [id number] 09:35-0500 Body mass index (BMI) [Ratio] 31.59 kg/m2 Jaye Ziats AT [facility] Work Phone: NEGATED: Highlighted [id number] 09:35-0500 Body weight 93.9 kg Jaye Ziats AT [facility] Work Phone: NEGATED: Highlighted [id number] 09:35-0500 Body weight 94 kg Jaye Roberts AT [facility] Work Phone: Procedures Date Procedure Procedure Detail Performing Clinician Start: 07-23-2021 End: 07-23-2021 BP scrn no perf at interval Enoch West MD Work Phone: Start: 07-23-2021 End: 07-23-2021 Calc BMI abv up nuris f/u Enoch West MD Work Phone: Start: 07-23-2021 End: 07-23-2021 Current tobacco non-user cad cap copd pv dm Enoch West MD Work Phone: Start: 07-23-2021 End: 07-23-2021 Docrev cur meds by [facility] sharon West MD Work Phone: Start: 07-23-2021 End: 07-23-2021 No doc of pain Enoch West MD Work Phone: Start: 07-23-2021 End: 07-23-2021 Patient encounter procedure Enoch West MD Work Phone: Start: 06-04-2021 End: 06-04-2021 BP scrn no perf at interval Smitha B Miller PA-C Work Phone: Start: 06-04-2021 End: 06-04-2021 Calc BMI out nrm nuris nof/u Smitha B Miller PA-C Work Phone: Start: 06-04-2021 End: 06-04-2021 Current tobacco non-user cad cap copd pv dm Smitha B Miller PA-C Work Phone: Start: 06-04-2021 End: 06-04-2021 Docrev cur meds by too sharon Smitha B Miller PA-C Work Phone: Start: 06-04-2021 End: 06-04-2021 Pain neg no plan Smitha Ahumada Paul Rivera Work Phone: Start: 06-04-2021 End: 06-04-2021 Patient encounter procedure Smitha Ahumada Paul OLSON Work Phone: NEGATED: Highlighted rowStart: 07-23-2021 End: 07-23-2021 Documentation of current medications Cammy Calle RN NEGATED: Highlighted rowStart: 06-04-2021 End: 06-04-2021 Documentation of current medications Jaye Armando AT Plan of Treatment Date Care Activity Detail Author Start: 07-23-2021 End: 07-23-2021 Patient encounter procedure Appointment [facility] Work Phone: Start: 06-04-2021 End: 06-04-2021 Patient encounter procedure Appointment [facility] Work Phone: Social History Date Type Detail Facility Start: 06-04-2021 End: 07-23-2021 Assertion Unknown if ever smoked [facility] Work Phone: NEGATED: Highlighted rowStart: 06-04-2021 End: 06-04-2021 Employment detail Employment detail [facility] Work Phone: Evaluation note Note Date & Type Note Facility Evaluation note There may be informa tion available, but it has not been provided by the sender. [facility] Work Phone: Instructions Note Date & Type Note Facility [facility] Work Phone: Instructions Note Date & Type Note Facility [facility] Work Phone: Chief Complaint Chief Complaint Description Start Date right wrist post TENOSYNOVEC ABY RIGHT FIRST DORSAL COMPARTMENT; EXCISE RETINACULAR CYST RIGHT WRIST on 05/20/2021 Preliminary chief co mplaint data, not yet signed by the author as of Chief Complaint Description Start Date right hand post TENOSYNOVECT KAREEN RIGHT FIRST DORSAL COMPARTMENT; EXCISE RETINACULAR CYST RIGHT WRIST on 05/20/2021 Preliminary chief co mplaint data, not yet signed by the author as of Advance Directives There may be information available, but it has not been provided by the sender. There may be information available, but it has not been provided by the sender. Family History There may be information available, but it has not been provided by the sender.There may be information available, but it has not been provided by the sender. Additional Source Comments Reason for Visit (unrecogniz ed section and content) Reason For Visit Description Start Date Postop - subsequent visit Preliminary reason f or visit data, not yet signed by the author as of right hand post TENOSYNOVECT KAREEN RIGHT FIRST DORSAL COMPARTMENT; EXCISE RETINACULAR CYST RIGHT WRIST on 05/20/2021 FOR RECORDS PERTAINING TO PATIENTS WHO ARE OR HAVE BEEN ENROLLED IN A CHEMICAL DEPENDENCY/SUBSTANCEABUSE PROGRAM, SOME INFORMATION MAY BE OMITTED. This clinical summary was aggregated from multiple sources. Caution should be exercised in using it in the provision of clinical care. This summary normalizes information from multiple sources, and as a consequence, information in this document may materially change the coding, format and clinical context of patient data. In addition, data may be omitted in some cases. CLINICAL DECISIONS SHOULD BE BASED ON THE PRIMARY CLINICAL RECORDS. [employer] [facility]. provides no warranty or guarantee of the accuracy or completeness of information in this document.
[2023-04-24 17:46] LABS: Potassium 3.6 mmol/L (3.5-5.1)
== END | disposition home or self-care (01) ==
LOC: MFPLAB 14:28
PROVIDERS: PCP Family Medicine; Visit Provider Family Medicine
DX: E87.6 Hypokalemia (principal)
CPT/HCPCS: 36415; 84132

== ENCOUNTER → 2023-09-08 | Outpatient (CLI) | payer MEDICARE, SELFPAY ==
[2023-09-08 13:05] LABS: Thyroid Stim Hormone (TSH) 3.44 uIU/mL (0.358-3.74)
== END | disposition home or self-care (01) ==
LOC: MFPLAB 09:46
PROVIDERS: Visit Provider Family Medicine
DX: E03.9 Hypothyroidism, unspecified (principal)
CPT/HCPCS: 36415; 84443

== ENCOUNTER → 2023-09-19 | Outpatient (CLI) | payer MEDICARE, SELFPAY ==
[2023-09-19 10:12] LABS: Absolute Lymphocyte Count 1.85 X10^3/uL (0.83-4.51); Absolute Neutrophil Count 2.5 X10^3/uL (2.0-7.7); Basophil# 0.03 X10^3/uL; Basophil% 0.6 % (0-1); Hematocrit 44.2 % (37-47); Hemoglobin 14.8 g/dL (12.0-15.0); Lymphocyte # 1.85 X10^3/ul (0.83-4.51); Lymphocyte % 37.8 % (19-41); Mean Corp Hgb Conc 33.5 g/dL (32-36); Mean Corpuscular Hgb 27.9 pg (27.0-32.0); Mean Corpuscular Volume 83.4 fL (81-99); Mean Platelet Vol. 9.4 fl (6.2-12.0); Monocyte# 0.43 X10^3/uL; Monocyte% 8.8 % (0-10); NRBC Flagged by Analyzer 0 % (0-5); Neutrophil # 2.47 X10^3/uL (2.7-7.7); Neutrophil % 50.6 % (47-70); Platelet Count 275 K/mm3 (150-450); RBC Distribution Width CV 12.9 % (11.6-14.6); White Blood Count 4.9 K/mm3 (4.4-11.0)
[2023-09-19 10:31] LABS: ALB/GLOB Ratio 0.9 RATIO (0.9-2.4); AST(SGOT) 41 U/L (15-37); Alanine Aminotransfer ALT/SGPT 54 U/L (13-56); Albumin, Serum 3.7 g/dL (3.2-5.0); Alkaline Phosphatase 62 U/L (45-117); Anion Gap 6 (5-15); BUN 17 mg/dL (7-18); BUN/Creat Ratio 13.9 RATIO (10-20); Calcium,Total 9.4 mg/dL (8.5-10.1); Chloride 100 mmol/L (98-107); Creatinine, Serum 1.22 mg/dL (0.55-1.02); EST Glomerular Filtration Rate 46 mL/min (>60); Est Glom Filt Rate - Afr Amer 55 mL/min (>60); Globulin 3.9 g/dL (2.2-4.2); Glucose 161 mg/dL (74-106); Potassium 3.2 mmol/L (3.5-5.1); Protein, Total 7.6 g/dL (6.4-8.2); Sodium Level 136 mmol/L (136-145)
== END | disposition home or self-care (01) ==
LOC: RAD 09:34 → LAB 09:38
PROVIDERS: PCP Family Medicine; Referring Provider Family Medicine; Visit Provider Family Medicine
DX: R19.7 Diarrhea, unspecified (principal)
CPT/HCPCS: 36415; 80053; 85025

== ENCOUNTER → 2023-10-13 | Outpatient (CLI) | payer MEDICARE, SELFPAY ==
--- NOTE | 2023-10-13 09:00 | RAD_ITS ---
EXAMINATION: Air contrast UPPER GI SERIES INDICATION: Female, 73 years three-week history of pain and diarrhea. Gastroesophageal reflux. FLUOROSCOPY TIME (if supplied): (0:29) minutes/seconds. 36 images were obtained. TECHNIQUE: Radiographic and fluoroscopic images of the distal esophagus, stomach, and proximal small intestine were obtained following the oral ingestion of barium. COMPARISON: None. FINDINGS: There is no evidence for organomegaly, abnormal calcifications, or abnormal bowel gas pattern. The psoas margins and flank stripes are normal. The visualized osseous structures are normal. The mucosa of the esophagus, stomach and duodenum is normal in appearance without evidence for stricture, ulceration, mass or diverticulum. There is no evidence for hiatal hernia or gastroesophageal reflux. The stomach and duodenum are unremarkable. RAD/Upper GI Single Contrast IMPRESSION: 1. Normal upper gastrointestinal study. Electronically Signed: Karan Patino MD at 12:40 EDT ,
== END | disposition home or self-care (01) ==
PROVIDERS: PCP Family Medicine; Referring Provider Family Medicine; Visit Provider Family Medicine
DX: R19.7 Diarrhea, unspecified (principal)
CPT/HCPCS: 74240

== ENCOUNTER → 2023-10-29 | Outpatient (CLI) | payer MEDICARE, SELFPAY ==
[2023-10-29 18:29] LABS: Anion Gap 6 (5-15); BUN 14 mg/dL (7-18); BUN/Creat Ratio 12.7 RATIO (10-20); Calcium,Total 9.5 mg/dL (8.5-10.1); Chloride 101 mmol/L (98-107); EST Glomerular Filtration Rate 52 mL/min (>60); Est Glom Filt Rate - Afr Amer 62 mL/min (>60); Glucose 122 mg/dL (74-106); Potassium 3.5 mmol/L (3.5-5.1); Sodium Level 137 mmol/L (136-145)
== END | disposition home or self-care (01) ==
LOC: MTLAB 16:13
PROVIDERS: PCP Family Medicine; Referring Provider Family Medicine; Visit Provider Family Medicine
DX: E87.6 Hypokalemia (principal)
CPT/HCPCS: 36415; 80048

== ENCOUNTER → 2023-12-03 | Outpatient (CLI) | payer MEDICARE, SELFPAY ==
--- NOTE | 2023-12-03 12:21 | BI_ITS ---
MAMMOGRAPHY - BILATERAL SCREENING REASON FOR EXAM: Female, 73 years old. Routine annual screening examination. PERTINENT HISTORY: Aunt with breast cancer. TECHNIQUE: Digital bilateral breast lj (3D mammographic acquisition) in the CC and MLO projections. 2-D mediolateral oblique (MLO) and craniocaudad (CC) views of both breasts were obtained. CAD: Full Field Digital Mammography with Computer Added Detection was performed. COMPARISON: Comparison is made with prior study dated April 02, 2021. FINDINGS: Breast Composition: There are scattered areas of fibroglandular density. There are no dominant masses or suspicious calcifications. Stable 5.7 mm well-defined nodule in the axillary region of the left breast in keeping with a small lymph node. No other significant abnormalities are identified. There has been no significant change since the prior study. BI/SCRN MAMM (CAD)W/LJ BILAT IMPRESSION: Stable bilateral screening mammogram. Yearly follow-up mammogram recommended. (A) ASSESSMENT CATEGORY: BIRADS Category 2: Benign. A letter regarding these results will be sent to the patient by the facility within 30 days. Approximately 10% of breast cancers are not detected by mammography. A normal mammogram should not delay biopsy of a clinically suspicious abnormality. [id number] Electronically Signed: Karan Patino MD at 13:47 EDT ,
--- NOTE | 2023-12-03 12:25 | BD_ITS ---
STUDY: DUAL ENERGY X-RAY ABSORPTIOMETRY / DXA REASON FOR EXAM: Female, 73 years old. OSTEO TECHNIQUE: Bone Mineral Density (BMD) measurements of lumbar spine and bilateral hips were obtained. COMPARISON: Comparison is made with prior study February 22, 2014. FINDINGS: Lumbar Spine (L1-L4): g/cm2 (0.935) / T-score (-1.0) / Z-score (1.3) Findings are suggestive of osteopenia with a low fracture risk. Left Femur Total: g/cm2 (0.828) / T-score (-0.9) / Z-score (0.8) Left Femoral Neck: g/cm2 (0.653) / T-score (-1.8) / Z-score (0.3) Right Femur Total: g/cm2 (0.842) / T-score (-0.8) / Z-score (0.9) Right Femoral Neck: g/cm2 (0.664) / T-score (-1.7) / Z-score (0.4) The T-Scores on the most recent prior examination were: Lumbar Spine (L1-L4): There has been improvement of bone density since the previous examination. Left Femur Total: which represents a worsening of 7.1%. Right Femur Total: which represents a worsening of 4.2%. BD/Dexa Bone Density Study IMPRESSION: The patient is considered osteopenic as outlined below according to World Karl[employer] Organization (WHO) criteria with a moderate fracture risk. There has been worsening of bone density since the previous examination. Reference Information: The T-score is the number of standard deviations above or below the standard which is normal for young adults at their peak bone mineral density. The World Health Organization (WHO) interprets the T-scores as follows: Above -1 Normal bone density Between -1 and -2.5 Osteopenia Equal to / or below -2.5 Osteoporosis As a practical clinical guideline, osteopenia may be graded as follows: Mild -1 through -1.5 Moderate -1.6 through -2.0 Severe -2.1 through -2.4 The Z-score is the number of standard deviations above or below age-matched controls. A Z-score of less than -1.5 would be considered abnormal. References: 1. NIH Osteoporosis and Related Bone Diseases www osteo.org 2. International Society for Clinical Densitometry www iscd.org 3. National Osteoporosis Foundation www nof.org Electronically Signed: Karan Patino MD at 10:29 EDT ,
== END | disposition home or self-care (01) ==
LOC: OPBD 12:20
PROVIDERS: PCP Family Medicine; Referring Provider Family Medicine; Visit Provider Family Medicine
DX: Z12.31 Encounter for screening mammogram for malignant neoplasm of breast (principal); Z80.3 Family history of malignant neoplasm of breast; M81.0 Age-related osteoporosis without current pathological fracture
CPT/HCPCS: 77063; 77067; 77080

== ENCOUNTER → 2023-12-08 | Outpatient (CLI) | payer MEDICARE, SELFPAY ==
[2023-12-08 15:54] LABS: Hemoglobin A1c 6.2 % (3.8-5.6)
== END | disposition home or self-care (01) ==
LOC: MTLAB 12:45
PROVIDERS: PCP Family Medicine; Referring Provider Family Medicine; Visit Provider Family Medicine
DX: I10 Essential (primary) hypertension (principal); E11.69 Type 2 diabetes mellitus with other specified complication
CPT/HCPCS: 36415; 83036; 84443

== ENCOUNTER 2023-12-28 09:00 | Outpatient (RCR) | payer MEDICARE, SELFPAY ==
--- NOTE | 2023-12-14 08:54 | HP.PTEVAL_ITS ---
Patient's Visit Information Visit Information Visit Information: KIMBERLEE SUAREZ is a 73 year old F referred to Physical Therapy by ELYSSA YOO with a diagnosis of Unilateral primary OA R knee.. Date of Evaluation: 12/14/23 Physical Therapist: JUDE Medina Visit Plan Frequency: 2x /Week Duration: 3 Weeks Plan: 2-3 visits per pt request for HEP for R hip and knee strengthening exercises, functional transfers (sit to stand and stairs), gait training with HEP HEP: clams shells, SLR, Bridges, QS Next visit: squats to chair, step ups, Subjective Subjective: Pt is supposed to have R TKR Jan 31. They want her to get stronger before surgery. She is having trouble squatting, getting down to the floor and getting up, and stairs. She is bone on bone. She does hurt. She is wondering if she really needs this surgery. She can not walk as long as she needs too cause it hurts and stiffness. Stairs: depends on step 2 or recip and use a railing. She is sleeping ok and her knee aches sometimes but does not wake up a lot because of it. Pain R knee pain: Pain Intensity (Out of 10): 2 Objective Objective: Gait: Walks with decrease stance time on the R LE and decrease knee flexion Pt is able to heel and toe walk Stairs: 2 hand rails with recip gait pattern up the stair and down the stairs (stiffness and hesitation going down with the L on THE R knee) Sit to stand: able to get up without using her arms MMT: R hip flex 13.6 and L 11.6 R knee ext 14.4 and L 14.3 R knee flex 7 and L 8.7 R hip abd 6.1 and L 7.7 R hip ext 6.2 and L 7.8 Bridge: able to get 3/4 normal ROM Girth R tib tub 35 and L 34.4 R Sup patella 39.4 and L 38.6 Knee AROM: R -4 to 123 L -4 to 123 Balance/Special Test Scores Lower Extremity Functional Score: 45 Goals Goal 1:: I HEP Goal Time Frame: 4-6 Weeks Goal 2:: Be able to walk with more equal stance time on B LE's Goal Time Frame: 4-6 Weeks Goal 3:: Increase R knee AROM (-4 to123) Goal Time Frame: 4-6 Weeks Rehabilitation Potential Rehabilitation Potential: Good Anticipated Interventions Patient/Client Instruction: Educate patient on: Condition and Plan of Care For the Purpose of:: To decrease pain, To increase ROM, To improve nutrient delivery to tissue, To improve muscle performance and motor function, To improve ability to perform ADL's, To increase tolerance to activity/condition/position, To improve performance and independence with ADL's, To decrease level of supervision to perform tasks, To improve ability of physical actions for home/community/work/leisure, To improve gait and locomotor functions, To improve health of tissue, To decrease soft tissue restriction, To increase flexibility/ROM, To improve endurance, To improve balance and To improve safety with gait Therapeutic Exercise to Include: Strength training, Endurance training, Postural training, Flexibilty training, Gait and locomotor training, Passive ROM and Active ROM For the Purpose of:: To decrease pain, To decrease swelling/inflammation, To increase ROM, To improve nutrient delivery to tissue, To improve muscle performance and motor function, To improve ability to perform ADL's, To increase tolerance to activity/condition/position, To decrease level of supervision to perform tasks, To improve ability of physical actions for home/community/work/leisure, To improve gait and locomotor functions, To improve health of tissue, To decrease soft tissue restriction and To increase flex ibility/ROM Functional Training to Include: Gait training For the Purpose of:: To improve gait and locomotor functions and To improve safety with gait Text: Thank you for the opportunity to evaluate your patient. For Medicare and Medicare HMO plans, please review the plan of care and approve it. It will need to be FAXED BACK to us at [phone] for Medicare purposes. For Medicare only, by signing this I certify the plan of care. Please let me know if there are questions or concerns regarding this plan of care. Physician Signature: Date:
--- NOTE | 2023-12-28 09:50 | HP.PTDCSUM ---
Discharge Summary D/C summary: It has been my pleasure to treat KIMBERLEE SUAREZ referred by ELYSSA YOO, with the diagnosis of Unilateral primary OA R knee. for a total of 2 visit(s). Discharge Date: 12/28/23 Please see the following information for a summary of their discharge status. Subjective Subjective: Pt came in saying she does not want to have a TKR in Jan and wants to push it back. She wants to get HEP today and keep doing it at home until she is ready to have the surgery Pain R knee pain: Pain Intensity (Out of 10): 2 Overall Improvement % Improvement: 10 Objective Objective/Function: Pt has full understanding of above HEP with pictures. Goals Goal 1:: I HEP Goal Progress: Goal Met Goal 2:: Be able to walk with more equal stance time on B LE's Goal Progress: Progressing Goal 3:: Increase R knee AROM (-4 to123) Goal Progress: Progressing Plan Plan: 2-3 visits per pt request for HEP for R hip and knee strengthening exercises, functional transfers (sit to stand and stairs), gait training with HEP HEP: cla shells, SLR, Bridges, QS Next visit: squats to chair, step ups, D/C Information Discharge Comments: DC PT to HEP d/c sentence: If there are questions or concerns regarding this patient's physical therapy, please feel free to call me at [phone]. Thank you for the referral of this patient. Sincerely, Cyn Dhaliwal, MPT Balance/Gait/Functional tests Balance/Special Test Scores Lower Extremity Functional Score: 45 Improvement % Improvement: 10
== END 2023-12-28 10:48 | disposition home or self-care (01) ==
LOC: PT 09:00
PROVIDERS: PCP Family Medicine
DX: M17.11 Unilateral primary osteoarthritis, right knee (principal)
CPT/HCPCS: 97110; 97161

== ENCOUNTER → 2024-01-12 | Outpatient (CLI) | payer MEDICARE, SELFPAY ==
[2024-01-12 16:18] LABS: Erythrocyte Sedimentation Rate 4 mm/hr (0-30)
[2024-01-12 16:37] LABS: CRP < 2.90 mg/L (0.0-3.0); LDH 148 U/L (84-246)
[2024-01-14 11:10] LABS: Anti-Centromere B Ab <0.2 AI (0.0-0.9); Anti-Chromatin <0.2 AI (0.0-0.9); Anti-Jo <0.2 AI (0.0-0.9); Anti-Scleroderma-70 AB <0.2 AI (0.0-0.9); Anti-dsDNA Ab 8 IU/mL (0-9); RNP Ab 0.4 AI (0.0-0.9); SJOGREN'S Anti-SS-A test < 0.2 AI (0.0-0.9); SJOGREN'S Anti-SS-B test < 0.2 AI (0.0-0.9); Smith Ab <0.2 AI (0.0-0.9)
[2024-01-18 16:09] LABS: ACCA 31 units (0-90); ALCA 24 units (0-60); AMCA 55 units (0-100); Albumin 3.8 g/dL (2.9-4.4); Alpha-1-Globulins 0.2 g/dL (0.0-0.4); Alpha-2-Globulins 0.7 g/dL (0.4-1.0); Cytoplasmic Ab (C-ANCA) <1:20 titer (Neg:<1:20); Gamma Globulin 1.1 g/dL (0.4-1.8); Immunoglobulin A 102 mg/dL (64-422); Immunoglobulin E 5 IU/mL (6-495); Immunoglobulin G 1054 mg/dL (586-1602); Immunoglobulin M 110 mg/dL (26-217); PROEL- TOTAL PROTEIN 6.7 g/dL (6.0-8.5); Perinuclear Ab (P-ANCA) <1:20 titer (Neg:<1:20); gASCA 22 units (0-50)
== END | disposition home or self-care (01) ==
LOC: LAB 15:50
PROVIDERS: PCP Family Medicine
DX: K59.01 Slow transit constipation (principal)
CPT/HCPCS: 82784; 82785; 83516; 83615; 84165; 85652; 86036; 86037; 86140; 86225; 86235; 86334; 86671

== ENCOUNTER → 2024-02-03 | Outpatient (CLI) | payer MEDICARE, SELFPAY ==
[2024-02-10 08:13] LABS: Calprotectin, Stool 92 ug/g (0-120)
== END | disposition home or self-care (01) ==
LOC: LABSPEC 14:26
PROVIDERS: PCP Family Medicine
DX: K59.01 Slow transit constipation (principal); K58.9 Irritable bowel syndrome, unspecified
CPT/HCPCS: 83630; 83993

== ENCOUNTER → 2024-08-08 | Outpatient (CLI) | payer MEDICARE, SELFPAY ==
[2024-08-08 16:09] LABS: Absolute Lymphocyte Count 1.65 X10^3/uL (0.83-4.51); Absolute Neutrophil Count 4.9 X10^3/uL (2.0-7.7); Basophil# 0.03 X10^3/uL; Basophil% 0.4 % (0-1); Eosinophil# 0.14 X10^3/uL; Hematocrit 40.3 % (37-47); Hemoglobin 13.5 g/dL (12.0-15.0); Lymphocyte # 1.65 X10^3/ul (0.83-4.51); Lymphocyte % 23.2 % (19-41); Mean Corp Hgb Conc 33.5 g/dL (32-36); Mean Corpuscular Hgb 27.7 pg (27.0-32.0); Mean Corpuscular Volume 82.8 fL (81-99); Mean Platelet Vol. 9.3 fl (6.2-12.0); Monocyte# 0.43 X10^3/uL; NRBC Flagged by Analyzer 0 % (0-5); Neutrophil # 4.85 X10^3/uL (2.7-7.7); Neutrophil % 68.1 % (47-70); Platelet Count 291 K/mm3 (150-450); RBC Distribution Width CV 12.9 % (11.6-14.6); Red Blood Count 4.87 M/mm3 (4.2-5.4); White Blood Count 7.1 K/mm3 (4.4-11.0)
[2024-08-08 16:44] LABS: ALB/GLOB Ratio 1.5 RATIO (0.9-2.4); AST(SGOT) 20 U/L (<=31); Alanine Aminotransfer ALT/SGPT 18 U/L (<=34); Albumin, Serum 4.2 g/dL (3.4-4.8); Alkaline Phosphatase 62 U/L (35-104); Anion Gap 12 (5-15); BUN 17 mg/dL (4-19); BUN/Creat Ratio 16.2 RATIO (10-20); Calcium,Total 9.7 mg/dL (7.6-11.0); Carbon Dioxide 26.9 mmol/L (21.0-32.0); Chloride 100 mmol/L (98-108); Cholesterol 202 mg/dL (<=200); Creatinine, Serum 1.02 mg/dL (0.70-1.20); EST Glomerular Filtration Rate 58 (>60); Globulin 2.8 g/dL (2.2-4.2); Glucose 109 mg/dL (70-99); High Density Lipoprotein 41 mg/dL; Low Density Lipoprotein Calc. 137 mg/dL; Potassium 3.8 mmol/L (3.3-5.1); Sodium Level 139 mmol/L (133-145); Total Bilirubin 1.65 mg/dL (0.00-1.30); Triglycerides 121 mg/dL; Very Low Density Lipoprotein 24 mg/dL (5-40); cholesterol:hdl ratio screen 4.91
[2024-08-08 17:39] LABS: Vitamin B12 1150 pg/mL (180-914)
== END | disposition home or self-care (01) ==
LOC: MFPLAB 09:45
PROVIDERS: PCP Family Medicine; Referring Provider Family Medicine; Visit Provider Family Medicine
DX: Z01.89 Encounter for other specified special examinations (principal)
CPT/HCPCS: 36415; 80053; 80061; 82607; 83036; 85025

== ENCOUNTER 2024-11-24 08:56 | Day surgery (SDC) | payer MEDICARE, SELFPAY ==
[2024-11-24] VITALS (9 sets, daily range): BP systolic 85–118; BP diastolic 62–77; PULSE 59–74; RESP 16–18; TEMP 36.2–36.6; O2SAT 93–98; BMI 26.9
[2024-11-24] MEDS: Lactated Ringers 1,000 ML 15 ML IV (09:40)
--- NOTE | 2024-11-24 09:46 | PCM.PRE.AN2 ---
ASA Classification* ASA Classification ASA Classification: 3 Assessment & Plan Anesthesia* Anesthesia Assessment Anesthesia Assessment: Discussed sedation and/or anesthesia options, risks, benefits, and alternatives with patient/parents/legal guardian/POA. Questions invited. The patient/parents/legal guardian/POA seems to understand and agrees to proceed with anesthesia plan. Reviewed the physical assessment, medical history, allergy history and patient home medications list prior to surgery/procedure/anesthetic and documented any changes. Performed airway and anesthesia risk assessments. Anesthesia Type Anesthesia Type: MAC History Source History Obtained from:: Patient and Chart Anesthesia Focused Assessment* Temperature: 97.4 F Pulse Rate: 74 Blood Pressure: 118/77 Respiratory Rate: 18 Pulse Ox: 98 Oxygen Delivery Method: Room Air Airway Assessment Mouth opens: >3 cm Mallampati Score: II Teeth Condition: Intact and Caps/Crowns Neck Range of motion (ROM): Full ROM Labs Anesthesia Preop lab: CBC WBC 7.1 K/mm3 (4.4-11.0) 08/08/24 10:10 08/08/24 RBC 4.87 M/mm3 (4.2-5.4) 08/08/24 10:10 08/08/24 Hgb 13.5 g/dL (12.0-15.0) 08/08/24 10:10 08/08/24 Hct 40.3 % (37-47) 08/08/24 10:10 08/08/24 Plt Count 291 K/mm3 (150-450) 08/08/24 10:10 08/08/24 CHEMISTRY Potassium 3.8 mmol/L (3.3-5.1) 08/08/24 10:10 08/08/24 Sodium 139 mmol/L (133-145) 08/08/24 10:10 08/08/24 BUN 17 mg/dL (4-19) 08/08/24 10:10 08/08/24 Creatinine 1.02 mg/dL (0.70-1.20) 08/08/24 10:10 08/08/24 Glucose 109 mg/dL (70-99) H 08/08/24 10:10 08/08/24 TSH 2.020 uIU/mL (0.358-3.740) 12/08/23 12:47 09/03/24 COAG Pre-Assessment Diagnosis/Proposed Procedure Planned Operative Procedure(s): COLONOSCOPY Anesthesia History 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 When Was Last Pacemaker Check QUESTION #4 FULL TEXT: You/Your Family Experience fever (hyperthermia) with Anesthesia Last Oral Intake Last Oral intake: Last Oral Intake NPO since 04:00 11/24/24 09:27 Meds taken in AM with sips of No 11/24/24 09:27 water? Meds patient instructed to take am of surgery PONV PONV - seed corn production manager: PONV - seed corn production manager Female Yes 11/22/24 16:27 HX of Motion Sickness No 11/22/24 16:27 HX of N/V After Surgery Yes 11/22/24 16:27 Non-Smoker Yes 11/22/24 16:27 Duration of Surgery greater No 11/22/24 16:27 than 60 minutes Number of Risk Factors 3 11/22/24 16:27 PONV Score Moderate Risk 11/22/24 16:27 Height & Weight Height & Weight: Anesthesia: Height & Weight Height 5 ft 8 in 11/24/24 09:27 Weight: 80.286 kg 11/24/24 09:27 Body Mass Index (BMI) 26.9 11/24/24 09:27 Respiratory Assessment Respiratory Assessment - seed corn production manager: Respiratory Tract Infection Hx - seed corn production manager Hx Respiratory Tract Infection No 11/22/24 16:27 STOP Sleep Apnea STOP Sleep Apnea - seed corn production manager: STOP Sleep Apnea - seed corn production manager Hx Hypertension Yes: PER PT, CONTROLLED ON 11/22/24 16:27 MEDS Hx Sleep Apnea No 11/22/24 16:27 CPAP BIPAP Do you snore loudly (louder No 11/22/24 16:27 than talking or can be heard Do you often feel tired/ No 11/22/24 16:27 fatigued/ sleepy during daytime? Has anyone observed you stop Yes 11/22/24 16:27 breathing during sleep? STOP Results Positive 11/22/24 16:27 QUESTION #5 FULL TEXT : Do you snore loudly (louder than talking or can be heard through closed doors)? Tobacco Use History Tobacco Use History - seed corn production manager: Tobacco Use History - seed corn production manager Tobacco Use Smoking Status Never smoker 11/22/24 16:27 Hx Tobacco Use No 11/22/24 16:27 Years Smoking Packs Smoked per Day Smoking Cessation Date was within the last 15 years Hx Smoking Cessation Date Hx Smoking Cessation Counseling Hematologic Medial History Hematologic Hx - seed corn production manager: Hematologic Medical Hx - documentation specialist Hx of Blood Transfusion No 11/22/24 16:27 Hx of Transfusion in last 3 No 11/22/24 16:27 Months Date of Last Transfusion (if within last 3 months) Ever experience any problems No 11/22/24 16:27 with transfusion(s)? Specify any problems Hx of Preganancy in last 3 No 11/22/24 16:27 Months Nurse Filling Out Transfusion MARTIN 11/22/24 16:27 & Questions: Date: 11/22/24 11/22/24 16:27 Time: 16:29 11/22/24 16:27 Patient unable to answer at this time (ie. confused, unrespo /Reproduction History /Reproductive History - seed corn production manager: /Reproductive Hx- seed corn production manager Hx Now No 11/22/24 16:27 Gestational Age (in weeks): EDC: Hx Hx Para Hx Section SAB No 11/22/24 16:27 Active Medications Active Medications: Current Medications Generic Name Dose Route Start Last Admin Trade Name Freq PRN Reason Stop Dose Admin Lactated Ringer's 1,000 mls @ 15 mls/hr 11/24/24 09:15 11/24/24 09:40 IV 15 mls/hr .Q48H CELSA Administration PFSH Medical History (Updated 11/22/24 @ 16:35 by Esthela Paige) Wears glasses Thyroid disease Arthritis PONV (postoperative nausea and vomiting) History of hiatal hernia History of IBS Gastric reflux Asthma Non-smoker Leg cramps Hypertension Home Medications ?Medication ?Instructions ?Recorded ?Last Taken ?Type biotin 5,000 mcg chewable tablet 5,000 mcg PO DAILY 10/12/23 11/20/24 History calcium carbonate (Antacid 200 mg PO BID 10/12/23 11/20/24 History (calcium carbonate)) cholecalciferol (vitamin D3) 50 50 mcg PO DAILY 10/12/23 11/20/24 History mcg (2,000 unit) capsule citalopram 20 mg tablet 20 mg PO DAILY 10/12/23 11/20/24 History cyanocobalamin (vitamin B-12) 2,000 mcg PO DAILY 10/12/23 11/20/24 History 1,000 mcg capsule hydrochlorothiazide 25 mg tablet 25 mg PO DAILY 10/12/23 11/20/24 History levothyroxine 50 mcg capsule 50 mcg PO DAILY 10/12/23 11/24/24 07:00 History omeprazole 40 mg capsule,delayed 40 mg PO DAILY 10/12/23 11/20/24 History release semaglutide 0.25 mg or 0.5 mg (2 0.5 mg subcut TH 01/12/24 11/10/24 History mg/3 mL) subcutaneous pen injector (Ozempic) psyllium husk 2.6 gram/4.1 gram 1 tbsp PO ONCE 04/13/24 Unknown History oral powder ondansetron HCl 4 mg tablet 4 mg PO .COMPLEX #10 tabs 07/26/24 Unknown Rx peg 3350-electrolytes 236 240 ml PO Q10M #4,000 mL 07/26/24 Unknown Rx gram-22.74 gram-6.74 gram-5.86 gram solution (Golytely) linaclotide 290 mcg capsule 290 mcg PO QAM #90 caps 09/19/24 11/20/24 Rx (Linzess) peg 3350-sod sulf,[id number]-dlw-pbo See Rx Instructions PO .COMPLEX #2 11/18/24 11/24/24 Rx 178.7-7.3-0.5-1.12-0.9 gram oral mL soln (Suflave) albuterol sulfate 90 mcg/actuation 2 puff inhalation 4X/DAY 11/22/24 Unknown History aerosol inhaler Allergy/AdvReac Type Severity Reaction Status Date / Time Sulfa (Sulfonamide Allergy Unknown Verified 11/24/24 09:22 Antibiotics) Surgical History (Updated 11/22/24 @ 16:27 by Esthela Paige) History of cholecystectomy History of esophagogastroduodenoscopy (EGD) History of tubal ligation History of colonoscopy H/O: hysterectomy Social History household members: spouse housing: house number of children: 3 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
--- NOTE | 2024-11-24 09:49 | PCM.HP.STD ---
HPI - General General Date of Admission: 11/24/24 Date of Service: 11/24/24 Chief Complaint: Constipation HPI Narrative KIMBERLEE SUAREZ, is a 74 F who presents with the Chief Complaint: constipation - per prior notes colon and EGD in 2019 - per patient this was negative - denies any bleeding - on metamucil - some improvement - wants a pill - difficult to get down - started Ozempic November 2023 - she reports for years she was experiencing diarrhea for a few days and then constipation - since starting metamucil she thinks this has helped - maybe 30% better - 1tbsp daily - she has increased her water intake - she reports PCP gave her Linzess - states she took 1 dose and it took 8 hours to work - miralax on occasion - stools softener on occasion - lower abd pain prior to a BM - does not feels she is fully evacuating - denies any family h/o colon CA - states she feels stool is stuck in the rectum but cannot push hard enough to get it out the muscles just are not strong enough - she does experience urinary incontinence - reports a h/o rectocele [facility] Medical History Wears glasses Thyroid disease Arthritis PONV (postoperative nausea and vomiting) History of hiatal hernia History of IBS Gastric reflux Asthma Non-smoker Leg cramps Hypertension Home Medications ?Medication ?Instructions ?Recorded ?Last Taken ?Type biotin 5,000 mcg chewable tablet 5,000 mcg PO DAILY 10/12/23 11/20/24 History calcium carbonate (Antacid 200 mg PO BID 10/12/23 11/20/24 History (calcium carbonate)) cholecalciferol (vitamin D3) 50 50 mcg PO DAILY 10/12/23 11/20/24 History mcg (2,000 unit) capsule citalopram 20 mg tablet 20 mg PO DAILY 10/12/23 11/20/24 History cyanocobalamin (vitamin B-12) 2,000 mcg PO DAILY 10/12/23 11/20/24 History 1,000 mcg capsule hydrochlorothiazide 25 mg tablet 25 mg PO DAILY 10/12/23 11/20/24 History levothyroxine 50 mcg capsule 50 mcg PO DAILY 10/12/23 11/24/24 07:00 History omeprazole 40 mg capsule,delayed 40 mg PO DAILY 10/12/23 11/20/24 History release semaglutide 0.25 mg or 0.5 mg (2 0.5 mg subcut TH 01/12/24 11/10/24 History mg/3 mL) subcutaneous pen injector (Ozempic) psyllium husk 2.6 gram/4.1 gram 1 tbsp PO ONCE 04/13/24 Unknown History oral powder ondansetron HCl 4 mg tablet 4 mg PO .COMPLEX #10 tabs 07/26/24 Unknown Rx peg 3350-electrolytes 236 240 ml PO Q10M #4,000 mL 07/26/24 Unknown Rx gram-22.74 gram-6.74 gram-5.86 gram solution (Golytely) linaclotide 290 mcg capsule 290 mcg PO QAM #90 caps 09/19/24 11/20/24 Rx (Linzess) peg 3350-sod sulf,[id number]-lzy-ggk See Rx Instructions PO .COMPLEX #2 11/18/24 11/24/24 Rx 178.7-7.3-0.5-1.12-0.9 gram oral mL soln (Suflave) albuterol sulfate 90 mcg/actuation 2 puff inhalation 4X/DAY 11/22/24 Unknown History aerosol inhaler Allergy/AdvReac Type Severity Reaction Status Date / Time Sulfa (Sulfonamide Allergy Unknown Verified 11/24/24 09:22 Antibiotics) Surgical History History of cholecystectomy History of esophagogastroduodenoscopy (EGD) History of tubal ligation History of colonoscopy H/O: hysterectomy Social History household members: spouse housing: house number of children: 3 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 status: 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 pets and animals: No Smoking Status: Never smoker alcohol intake: current alcohol intake frequency: holidays/special occasions only substance use type: does not use caffeine: Yes Type: carbonated beverages and tea harjinder/worship: Hindu seatbelt use: always do you feel safe at home: Yes ROS Constitutional Constitutional: Denies fatigue, fever(s), poor appetite, weight gain or weight loss Gastrointestinal Gastrointestinal: Denies belching, bloating, change in bowel habits, change in stool character, chewing difficulty, coffee ground emesis, constipation, cramping, diarrhea, dyspepsia, dysphagia, early satiety, excessive flatus, fecal incontinence, heartburn, hematemesis, hematochezia, hemorrhoids, loose stools, melena, nausea, odynophagia, rectal bleeding, tenesmus, vomiting or weight changes Vital Signs Vital Signs Vital Signs: 11/24/24 09:25 11/24/24 09:27 11/24/24 09:46 Temperature 97.4 F L 97.4 F L Temperature Source Temporal Pulse Rate 74 74 Respiratory Rate 18 18 Respiratory Pattern Normal Blood Pressure 118/77 118/77 Blood Pressure Mean 90 Blood Pressure Source Monitor Blood Pressure Position Semi-Fowlers Blood Pressure Location Left Arm Pulse Ox 98 98 Oxygen Delivery Method Room Air Room Air Weight Weight: 177 lb Body Mass Index (BMI) 26.9 Physical Exam Const alert, oriented x3, no apparent distress and healthy appearing General Appearance: cooperative GI normal to inspection, nondistended, normoactive bowel sounds, soft to palpation, non-tender and non-distended Percussion: normal to percussion Rectal Exam: deferred Assessment & Plan Assessment/Plan (1) Constipation by delayed colonic transit: (2) Fecal retention: PLAN: Assessment and Plan Assessment and Plan (1) Constipation by delayed colonic transit: Status: Acute (2) Fecal retention: Status: Acute Plan: ARM Orders: Referrals Gastroenterology K59.00 - Constipation, unspecified, K59.01 - Slow transit constipation Medications: New linaclotide (Linzess) take 30 minutes prior to breakfast daily 145 mcg PO QAM 90 caps 1RF Plan 73y/o female presents for three month follow-up of constipation. She was last seen by Maranda Wharton CNP on 01/12/2024. She was started on metamucil daily but reports this is difficult to get down and would like a pill. Labs completed 01/12/2024 reveal a normal CRP, fecal calprotectin and IBD serologies. She reports constipation worsened with starting Semiglutide November 2023; she reports a 15lbs weight in past 5 months. She denies any bleeding. She does experience some lower abdominal pain with bowel movements and c/o incomplete evacuation with a BM every other day. I have scheduled her for an ARM and started Linzess 145mcg daily. She will also discontinue Metamucil and start Fibercon tablets daily. She will follow-up in one month. Patient Instructions: 1. Discontinue Metamucil 2. Fibercon tablets - take 2 tablets once a day with 8 ounces of water 3. Start Linzess 145mcg once daily - take 30 minutes before breakfast daily 4. Anorectal Manometry 5. Follow-up in 1 month, pending symptoms may recommend colonoscopy Plan Details Follow Up: 1 Month
--- NOTE | 2024-11-24 10:00 | COLBX_PTH ---
PATIENT: KIMBERLEE SUAREZ LOC: EN U#:[id number] AGE/SX: 74/F ROOM: RE11/24/[address]: Dr. Marvin Meraz DO : 1950 BED: DIS: 11/24/2024 SPEC #: [id number] RECD: 11/24/24 11:35 STATUS: KULDIP CRESENCIO #: [id number] TAE: 11/24/24 10:[address]: Marvin Meraz DEPT: SURGICAL PATHOLOGY RECD BY: Kristofer Obrien ENTERED: 11/24/24 14:48 SP TYPE: COLON BX OTHR DR: Emigdio Michelle MD Tissues: A - Transverse colon B - Rectum, NOS Procedures: Surgery Specimen Level IV HEADER OPERATION: Colonoscopy with biopsy PRE-OP DIAGNOSIS: Constipation by delayed colonic transit, fecal retention TISSUE SUBMITTED: A- Transverse colon polyps biopsy, B- Rectum colon polyp biopsy MICROSCOPIC DIAGNOSIS A. Transverse colon, polyp, biopsy: * Tubular adenoma B. Rectum, polyp, biopsy: * Tubular adenoma MICROSCOPIC DESCRIPTION Slides are reviewed. GROSS DESCRIPTION A. Received in fixative is one container labeled with the patient's name and designated Transverse colon polyp biopsy. The specimen consists of multiple irregular fragments of light bolanos soft tissue that in aggregate measure 1.3 x 0.6 x 0.1 cm. The specimen is totally submitted in one cassette. B. Received in fixative is one container labeled with the patient's name and designated Rectum colon polyp biopsy. The specimen consists of one irregular fragment of light bolanos soft tissue that measures 0.3 cm. The specimen is totally submitted in one cassette. OH 11/24/2024 CPT:[id number]
--- NOTE | 2024-11-24 10:20 | PCM.POST.ANE ---
Anesthesia: Postop Eval I Current Vital Signs Temperature: 98 F Pulse Rate: 59 Blood Pressure: 85/62 Respiratory Rate: 16 Pulse Ox: 96 Oxygen Delivery Method: Room Air Assessment Airway patent: Yes Spontaneous unlabored respirations: Yes Mental status: Awake and Calm nausea: No Vomiting: No Anesthesia Complication: No Fluid Hydration Crystalloid volume administer (ml): 300 Total IV fluid infused: 300 Progress Note Anesthesia document: Postop Eval 1 completed: Yes
--- NOTE | 2024-11-24 10:27 | POSTOPAN2_ITS ---
Anesthesia Postop Eval I Sum Postop Eval Completion status Anesthesia document: Postop Eval 1 completed: Yes Anesthesia Postop Eval I Summary Anesthesia Postop Eval I Summary: Anesthesia Postop Eval I: Assessment Summary Airway patent Yes 11/24/24 10:20 LETTUCE [email or web address] Spontaneous unlabored Yes 11/24/24 10:20 LETTUCE CUTTER.MDOT respirations Mental status Awake,Calm 11/24/24 10:20 LETTUCE [email or web address].MDOT nausea No 11/24/24 10:20 LETTUCE CUTTER.MDOT Vomiting No 11/24/24 10:20 LETTUCE CUTTER.MDOT Anesthesia Postop Eval I: Fluid Summary Crystalloid volume administer 300 11/24/24 10:20 LETTUCE CUTTER.MDOT (ml) Colloids volume administered ( ml) Blood Product volume administered (ml) Total IV fluid infused 300 11/24/24 10:20 LETTUCE CUTTER.MDOT Anesthesia Postop Eval I: Summary Notes Anesthesia Complication No 11/24/24 10:20 LETTUCE [email or web address].MDOT Anesthesia Complication Comment: Post-operative progress note Anesthesia: Postop Eval II Evaluation Mental status: Awake and Calm Pain Level: 0 nausea: No Vomiting: No Complications Anesthesia Complication: No
--- NOTE | 2024-11-24 10:27 | PCM.POSTANE2 ---
Anesthesia Postop Eval I Sum Postop Eval Completion status Anesthesia document: Postop Eval 1 completed: Yes Anesthesia Postop Eval I Summary Anesthesia Postop Eval I Summary: Anesthesia Postop Eval I: Assessment Summary Airway patent Yes 11/24/24 10:20 FURNACE [email or web address] Spontaneous unlabored Yes 11/24/24 10:20 FURNACE REPAIRER.MDOT respirations Mental status Awake,Calm 11/24/24 10:20 FURNACE REPAIRER.MDOT nausea No 11/24/24 10:20 FURNACE REPAIRER.MDOT Vomiting No 11/24/24 10:20 FURNACE REPAIRER.MDOT Anesthesia Postop Eval I: Fluid Summary Crystalloid volume administer 300 11/24/24 10:20 FURNACE REPAIRER.MDOT (ml) Colloids volume administered ( ml) Blood Product volume administered (ml) Total IV fluid infused 300 11/24/24 10:20 FURNACE REPAIRER.MDOT Anesthesia Postop Eval I: Summary Notes Anesthesia Complication No 11/24/24 10:20 FURNACE REPAIRER.MDOT Anesthesia Complication Comment: Post-operative progress note Anesthesia: Postop Eval II Evaluation Mental status: Awake and Calm Pain Level: 0 nausea: No Vomiting: No Complications Anesthesia Complication: No
--- NOTE | 2024-11-24 10:28 | OP.COLON_ITS ---
Patient Name: Crista Sky Procedure Date: 11/24/2024 9:50 AM Date of : 1950 Age: 74 Procedure: Colonoscopy Indications: Screening for colorectal malignant neoplasm Providers: Marvin Meraz DO Referring MD: Marvin Meraz DO Medicines: Monitored Anesthesia Care Patient Profile: This is a 74 year old female. Refer to note in patient chart for documentation of history and physical. Last Colonoscopy: several years ago. Complications: No immediate complications. Procedure: Pre-Anesthesia Assessment: - Prior to the procedure, a History and Physical was performed, and patient medications and allergies were reviewed. The patient is competent. The risks and benefits of the procedure and the sedation options and risks were discussed with the patient. All questions were answered and informed consent was obtained. Patient identification and proposed procedure were verified by the physician in the pre-procedure area. Mental Status Examination: alert and oriented. Airway Examination: normal oropharyngeal airway and neck mobility. Respiratory Examination: clear to auscultation. CV Examination: normal. Prophylactic Antibiotics: The patient does not require prophylactic antibiotics. Prior Anticoagulants: The patient has taken no anticoagulant or antiplatelet agents. ASA Grade Assessment: II - A patient with mild systemic disease. After reviewing the risks and benefits, the patient was deemed in satisfactory condition to undergo the procedure. The anesthesia plan was to use monitored anesthesia care (MAC). Immediately prior to administration of medications, the patient was re-assessed for adequacy to receive sedatives. The heart rate, respiratory rate, oxygen saturations, blood pressure, adequacy of pulmonary ventilation, and response to care were monitored throughout the procedure. The physical status of the patient was re-assessed after the procedure. After I obtained informed consent, the scope was passed under direct vision. Throughout the procedure, the patient's blood pressure, pulse, and oxygen saturations were monitored continuously. The Colonoscope was introduced through the anus and advanced to the cecum, identified by appendiceal orifice and ileocecal valve. The colonoscopy was performed without difficulty. The patient tolerated the procedure well. The quality of the bowel preparation was adequate. The ileocecal valve, appendiceal orifice, and rectum were photographed. Scope In: 10:00:05 AM Scope Withdrawal Time 0 hours 9 minutes 55 seconds Scope Out: 10:18:02 AM Total Procedure Duration Time 0 hours 17 minutes 57 seconds Findings: The perianal and digital rectal examinations were normal. A few small-mouthed diverticula were found in the recto-sigmoid colon and sigmoid colon. Four sessile polyps were found in the rectum and transverse colon. The polyps were 7 mm in size. These polyps were removed with a jumbo cold forceps. Resection and retrieval were complete. Verification of patient identification for the specimen was done. Estimated blood loss was minimal. Moderate rectal prolapse was present. Impression: - Diverticulosis in the recto-sigmoid colon and in the sigmoid colon. - Four 7 mm polyps in the rectum and in the transverse colon, removed with a jumbo cold forceps. Resected and retrieved. - Rectal prolapse. Recommendation: - Discharge patient to home. - Resume previous diet. - Continue present medications. - Await pathology results. - Repeat colonoscopy in 5 years for surveillance. Procedure Code(s): --- Professional --- 73044, Colonoscopy, flexible; with biopsy, single or multiple CPT copyright 2021 [employer]. All rights reserved. The codes documented in this report are preliminary and upon rail gang supervisor review may be revised to meet current compliance requirements. Marvin Meraz DO 11/24/2024 10:28:31 AM This report has been signed electronically. Number of Addenda: 0 Note Initiated On: 11/24/2024 9:50 AM
--- NOTE | 2024-11-24 10:29 | OP.PROVAT_ITS ---
11/24/2024 Emigdio Michelle Md Re : Colonoscopy procedure for Crista Sky Dear Viviana This procedure was performed on November. My impressions and recommendations are as follows: Impressions : - Diverticulosis in the recto-sigmoid colon and in the sigmoid colon. - Four 7 mm polyps in the rectum and in the transverse colon, removed with a jumbo cold forceps. Resected and retrieved. - Rectal prolapse. Recommendations : - Discharge patient to home. - Resume previous diet. - Continue present medications. - Await pathology results. - Repeat colonoscopy in 5 years for surveillance. My findings are described in the full procedure note, which is enclosed. If I can be of further assistance, please feel free to contact me at . Sincerely, Marvin Meraz, 11/24/2024 10:28:31 AM This report has been signed electronically.
--- NOTE | 2024-11-24 10:54 | POSTOPAN2_ITS ---
Anesthesia Postop Eval I Sum Postop Eval Completion status Anesthesia document: Postop Eval 1 completed: Yes Anesthesia Postop Eval I Summary Anesthesia Postop Eval I Summary: Anesthesia Postop Eval I: Assessment Summary Airway patent Yes 11/24/24 10:20 SWIMMING POOL PLASTERER [email or web address] Spontaneous unlabored Yes 11/24/24 10:20 SWIMMING POOL PLASTERER HELPER.MDOT respirations Mental status Awake,Calm 11/24/24 10:27 SWIMMING POOL PLASTERER HELPER.MDOT nausea No 11/24/24 10:27 SWIMMING POOL PLASTERER HELPER.MDOT Vomiting No 11/24/24 10:27 SWIMMING POOL PLASTERER [email or web address].[email or web address] Anesthesia Postop Eval I: Fluid Summary Crystalloid volume administer 300 11/24/24 10:20 SWIMMING POOL PLASTERER HELPER.MDOT (ml) Colloids volume administered ( ml) Blood Product volume administered (ml) Total IV fluid infused 300 11/24/24 10:20 SWIMMING POOL PLASTERER HELPER.[email or web address] Anesthesia Postop Eval I: Summary Notes Anesthesia Complication No 11/24/24 10:27 SWIMMING POOL PLASTERER [email or web address].[email or web address] Anesthesia Complication Comment: Post-operative progress note Anesthesia: Postop Eval II Evaluation Mental status: Awake Pain Level: 0 nausea: No Vomiting: No Complications Anesthesia Complication: No
--- NOTE | 2024-11-24 10:54 | PCM.POSTANE2 ---
Anesthesia Postop Eval I Sum Postop Eval Completion status Anesthesia document: Postop Eval 1 completed: Yes Anesthesia Postop Eval I Summary Anesthesia Postop Eval I Summary: Anesthesia Postop Eval I: Assessment Summary Airway patent Yes 11/24/24 10:20 SOFTWARE [email or web address] Spontaneous unlabored Yes 11/24/24 10:20 SOFTWARE SYSTEMS [email or web address] respirations Mental status Awake,Calm 11/24/24 10:27 SOFTWARE [email or web address] nausea No 11/24/24 10:27 SOFTWARE [email or web address] Vomiting No 11/24/24 10:27 SOFTWARE [email or web address] Anesthesia Postop Eval I: Fluid Summary Crystalloid volume administer 300 11/24/24 10:20 SOFTWARE [email or web address] [email or web address].[email or web address] (ml) Colloids volume administered ( ml) Blood Product volume administered (ml) Total IV fluid infused 300 11/24/24 10:20 SOFTWARE [email or web address] Anesthesia Postop Eval I: Summary Notes Anesthesia Complication No 11/24/24 10:27 SOFTWARE [email or web address] Anesthesia Complication Comment: Post-operative progress note Anesthesia: Postop Eval II Evaluation Mental status: Awake Pain Level: 0 nausea: No Vomiting: No Complications Anesthesia Complication: No
== END 2024-11-24 11:09 | disposition home or self-care (01) ==
LOC: EN 08:59 → AC 09:00
PROVIDERS: PCP Family Medicine; Referring Provider Family Medicine; Visit Provider Internal Medicine Gastroenterology
PROC: 0DJD8ZZ Inspection of Lower Intestinal Tract, Via Natural or Artificial Opening Endoscopic (ICD-10-PCS; CPT 45378; principal; 2024-11-24 09:55)
DX: K59.00 Constipation, unspecified (principal); K62.3 Rectal prolapse; K57.30 Diverticulosis of large intestine without perforation or abscess without bleeding; K21.9 Gastro-esophageal reflux disease without esophagitis; Z90.710 Acquired absence of both cervix and uterus; K62.1 Rectal polyp; I10 Essential (primary) hypertension; Z79.899 Other long term (current) drug therapy; Z90.49 Acquired absence of other specified parts of digestive tract; Z98.51 Tubal ligation status
CPT/HCPCS: 45380; 82962; 88305

== ENCOUNTER → 2025-02-03 | Outpatient (CLI) | payer MEDICARE, SELFPAY ==
--- NOTE | 2025-02-03 10:52 | RAD_ITS ---
PROCEDURE: LUMBAR SPINE 2 OR 3 VIEWS 02/03/2025 REASON FOR EXAM: NEW ONSET SCIATICA TECHNIQUE: Procedure Code: RADSPLL Modality: DX Procedure: LUMBAR SPINE 2 OR 3 VIEWS COMPARISON: None FINDINGS: Vertebrae: There is diffuse bony demineralization of the lumbar spine and sacrum. There are no sacral fractures. SI joints appear unremarkable. There are 5 lumbar-type vertebral bodies below the last set of paired ribs. The vertebral body heights are within normal limits. There is no spondylolysis. There is 2 mm of retrolisthesis of L2 in relationship to L3. The remaining vertebral body alignments are within normal limits. Mild degenerative disc disease is seen involving all of the lumbar disc spaces. Mild spondylosis of the lumbar spine is noted. Anterior osteophytes are seen off of the inferior endplate of the L1 vertebral body, superior and inferior endplates of the L2 and L3 vertebral bodies and superior endplate of the L4 vertebral body. 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 Surgical clips are seen in the gallbladder fossa. RAD/Lumbar Spine 2 or 3 Views IMPRESSION: Diffuse bony demineralization of the lumbar spine and sacrum. Grade 1 retrolisthesis of L2 in relationship to L3. Mild degenerative disc disease involving the lumbar discs. Mild spondylosis of the lumbar spine. 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 Reading Location: [id number]
== END | disposition home or self-care (01) ==
LOC: MTRAD 10:52
PROVIDERS: PCP Family Medicine; Referring Provider Family Medicine; Visit Provider Family Medicine
DX: M54.31 Sciatica, right side (principal)
CPT/HCPCS: 72100

== ENCOUNTER → 2025-02-20 | Outpatient (CLI) | payer MEDICARE, SELFPAY ==
[2025-02-20 13:17] LABS: Anion Gap 11 (5-15); BUN 14 mg/dL (4-19); BUN/Creat Ratio 14.2 RATIO (10-20); Calcium,Total 9.9 mg/dL (7.6-11.0); Carbon Dioxide 27.6 mmol/L (21.0-32.0); Chloride 101 mmol/L (98-108); Glucose 130 mg/dL (70-99); Potassium 3.9 mmol/L (3.3-5.1); Vitamin D,25 Hydroxy 55.2 ng/mL (30-100)
[2025-02-20 13:33] LABS: Creatinine, Urine (random) 135.00 mg/dL (28.00-217.00); Microalbumin,Random Urine < 12.0 mg/L (<20 mg/L)
== END | disposition home or self-care (01) ==
LOC: MTLAB 10:48
PROVIDERS: PCP Family Medicine; Referring Provider Family Medicine; Visit Provider Family Medicine
DX: E11.69 Type 2 diabetes mellitus with other specified complication (principal); E11.22 Type 2 diabetes mellitus with diabetic chronic kidney disease; N18.30 Chronic kidney disease, stage 3 unspecified; M85.80 Other specified disorders of bone density and structure, unspecified site
CPT/HCPCS: 36415; 80048; 82043; 82306; 82570; 83036